=== PATIENT | male | born 1940 ===

== ENCOUNTER 2018-01-04 23:58 | Inpatient (IN) | payer MEDICAID, MEDICARE ==
[2018-01-05 00:15] VITALS: BMI 25.1
[2018-01-05] MEDS: Sodium Chloride 0.9% 1,000 ML IV SCH ×3 (00:25→23:58)
[2018-01-05 00:30] LABS: BASO % 0.3 % (0.0-2.0); EOS # 0.1 K/uL (0.0-0.7); EOS % 0.8 % (0.0-4.0); HEMOGLOBIN 13.1 g/dL (12.0-18.0); LYMPH # 0.9 K/uL (1.0-4.3); MEAN CORPUSCULAR HEMOGLOBIN 31.1 pg (27.0-31.0); MEAN CORPUSCULAR HGB CONC 33.8 g/dL (33.0-37.0); MONO # 1.4 K/uL (0.0-0.8); NEUT # 8.5 K/uL (1.8-7.0); NEUT % 77.9 % (50.0-75.0); PLATELET COUNT 245 K/uL (130-400); RBC 4.22 Mil/uL (4.40-5.90); RED CELL DISTRIBUTION WIDTH 13.6 % (11.5-14.5); WHITE BLOOD COUNT 10.9 K/uL (4.8-10.8)
[2018-01-05] MEDS ORDERED: Sodium Chloride 0.9% 1,000 ML ONE (00:33)
[2018-01-05 00:41] LABS: INR 1.3; PROTHROMBIN TIME 14.7 SECONDS (9.7-12.2)
[2018-01-05 00:47] LABS: ALBUMIN 3.5 g/dL (3.5-5.0); ALT/SGPT 37 U/L (21-72); AST/SGOT 51 U/L (17-59); BLOOD UREA NITROGEN 25 mg/dL (9-20); CALCIUM 9.4 mg/dl (8.6-10.4); GFR NON-AFRICAN AMERICAN > 60; HDL CHOLESTEROL 24 mg/dL (30-70)
[2018-01-05 00:58] LABS: LDL CHOLESTEROL 75 mg/dL (0-129)
[2018-01-05] MEDS ORDERED: cefTRIAXone IV 1 gm in Dextros 50 ML IV ONE (01:06)
[2018-01-05] MEDS ORDERED: Azithromycin 500 MG in Sodium Chloride 0.9% 250 ML IV STA (01:06)
[2018-01-05] MEDS ORDERED: cefTRIAXone 1 gm 1 GM/100 ML BAG IVPB ONE (01:17)
[2018-01-05] MEDS ORDERED: Iodixanol 320 MG/ML 100 ML BOTTLE IV ONE (01:34)
[2018-01-05 01:58] LABS: LYMPHOCYTE 10 % (20-40); MONOCYTE 13 % (0-10); NEUTROPHIL 77 % (50-75); PLATELET ESTIMATE NORMAL (NORMAL); TOTAL CELLS COUNTED 100
[2018-01-05] MEDS ORDERED: Azithromycin 500mg/250ML NS 500 MG/250 ML BAG IVPB ONE (01:58)
--- NOTE | 2018-01-05 02:29 | C.PDOC ---
History Of Present Illness 77 year old male brought in by for AMS for the past 2 days. As per , patient has been confused with unstable gait and has been falling at home. Today patient has had trouble following directions and answers inappropriately. Patient at baseline has normal mental function and steady gait. Time Seen by Provider: 01/05/18 00:14 Chief Complaint (Nursing): Altered Mental Status History Per: Family () History/Exam Limitations: None Onset/Duration Of Symptoms: Days (2) Current Symptoms Are (Timing): Still Present Usual Baseline: Alert Oriented, Ambulatory Exacerbating Factor(s): Unknown Speech Is: Normal Decreased Ability To: Walk Recent travel outside of the [place]: No Past Medical History Reviewed: Historical Data, Nursing Documentation, Vital Signs Vital Signs: Last Vital Signs Temp 100.1 F H 01/05/18 00:09 Pulse 73 01/05/18 01:56 Resp 16 01/05/18 01:56 BP 141/76 01/05/18 01:56 Pulse Ox 100 01/05/18 01:56 - Medical History PMH: Emphysema, Hypercholesterolemia Denies: Chronic Kidney Disease Family History: States: Unknown Family Hx - Social History Hx Alcohol Use: No Hx Substance Use: No Review Of Systems Review Of Systems: ROS cannot be obtained secondary to pt's inabilty to answer questions. Physical Exam - Physical Exam Appears: Non-toxic Skin: Normal Color, Warm, Dry Head: Atraumatic, Normacephalic Eye(s): bilateral: Normal Inspection, PERRL, EOMI Oral Mucosa: Moist Neck: Normal, Supple Chest: Symmetrical, No Tenderness Cardiovascular: Rhythm Regular Respiratory: No Rales, No Rhonchi, No Wheezing, Other (Distant breath sounds with crackles) Gastrointestinal/Abdominal: Soft, No Tenderness Male Genital: Other (Benign right inguinal hernia) Neurological/Psych: Other (Awake, alert, intermittently confused) ED Course And Treatment - Laboratory Results Result Diagrams: 01/05/18 00:25 01/05/18 00:25 Lab Interpretation: Abnormal ECG: Interpreted By Me ECG Rhythm: Sinus Rhythm ECG Interpretation: Normal Rate From EC O2 Sat by Pulse Oximetry: 100 (room air) Pulse Ox Interpretation: Normal - Radiology CXR: Interpreted by Me CXR Interpretation: Yes: Other (interstial lung dz, no obvious PNA noted. ? free air under R HD- referred for CT) Reevaluation Time: 03:38 Reassessment Condition: Improved - Physician Consult Information Outcome Of Conversation: 0530: d/w Dr. Marsh, PMD, ok to admit. NIHSS Stroke Scale 2 - Date/Time Evaluation Performed Date Performed: 01/05/18 Time Performed: 00:15 When Was NIHSS Performed: Baseline - How Severe is the Stroke Level of Consciousness: 0=Alert LOC to Questions: 1=One correct LOC to commands: 0=Obeys both correctly Best Gaze: 0=Normal Visual: 0=No visual loss Facial: 0=Normal Motor Arm - Left: 0=No drift Motor Arm - Right: 0=No drift Motor Leg - Left: 0=No drift Motor Leg - Right: 0=No drift Limb Ataxia: 0=Absent Sensory: 0=Normal Best Language: 0=No aphasia Dysarthia: 1=Mild to moderate slurring Extinction & Inattention (Neglect): 0=Normal, no object Score: 2 rTPA Inclusion/Exclusion - Refusal of Treatment Patient Refused Treatment: No - Inclusion Criteria for Altepase Patient is 18 years or Older: Yes Clinical DX Ischemic Stroke Cause Neurological Deficit: No Time of Onset Established Less Than 270 Mins Before TX Begin: No Risk/Benefit Discussed With Patient/Family Member Present: No - Exclusion Criteria for Altepase Uncontrolled Hypertension at Time of TX (SBP>185 or DBP>110): No - Warning to TPA With Conditions Condition: Stroke Serevity Too Mild, Age Greater Than 75 years Medical Decision Making Medical Decision Making: change of MS normal Head CT Waxing and waning mental status (confusion) without neurological deficit ASA given May be fatigue due to multiple underlying acute on chronic medical issues. consider MRI in AM interstitial pneumonitis steroids, nebs, abx (conflict in CT Chest saying both NO QUENTIN and + mediastinal and hilar LN's) Sigmoid Diverticulitis ABX Surg Consult PRN Bladder/Sigmoid Adhesion prob related to surgical adhesion no obvious fistula Urology Consult PRN Disposition Doctor Will See Patient In The: Hospital Counseled Patient/Family Regarding: Studies Performed, Diagnosis - Disposition Disposition: HOSPITALIZED Disposition Time: 03:38 Condition: GOOD Forms: [facility] (Greek) - Clinical Impression Clinical Impression: Change in mental status, Diverticulitis, Bladder adhesions, Interstitial lung disease - Scribe Statement The provider has reviewed the documentation as recorded by the Scribdonna Whitlock All medical record entries made by the Baudilio were at my direction and personally dictated by me. I have reviewed the chart and agree that the record accurately reflects my personal performance of the history, physical exam, medical decision making, and the department course for this patient. I have also personally directed, reviewed, and agree with the discharge instructions and disposition.
[2018-01-05 03:13] LABS: GRANULAR CAST 4 /lpf (0-1); SQUAMOUS EPITHIAL 1 /hpf (0-5); URINE BILIRUBIN NEGATIVE (NEGATIVE); URINE BLOOD 2+ (NEGATIVE); URINE CLARITY Clear (Clear); URINE COLOR Yellow (YELLOW); URINE GLUCOSE (UA) NORMAL (Normal); URINE LEUKOCYTE ESTERASE NEG Leu/uL (Negative); URINE PROTEIN 1+ mg/dL (NEGATIVE)
[2018-01-05] MEDS ORDERED: Aspirin 325 mg EC Tablets PO STA (03:29)
[2018-01-05] MEDS ORDERED: Albuterol-Ipratrop 3 mg / 0.5 (3 ml) UD INH STA ×2 (03:32→03:42)
[2018-01-05] MEDS ORDERED: Aspirin 325 mg EC Tablets PO ONE (04:11)
[2018-01-05] MEDS ORDERED: Albuterol-Ipratrop 3 mg / 0.5 (3 ml) UD ONE ×2 (04:13)
[2018-01-05] MEDS ORDERED: Promethazine DM 6.25 mg-15 mg/5 ml Syrup ONE (05:26)
[2018-01-05] MEDS: Promethazine DM 6.25 mg-15 mg/5 ml Syrup PO PRN (05:26)
[2018-01-05] MEDS ORDERED: metroNIDAZOLE IV 500 mg/100 ml 500 MG/100 ML BAG ONE (06:24)
[2018-01-05] MEDS: metroNIDAZOLE IV 500 mg/100 ml 500 MG/100 ML BAG IVPB SCH ×3 (06:26→22:05)
--- NOTE | 2018-01-05 07:43 | CT ---
Date of service: 01/05/2018 PROCEDURE: CT HEAD WITHOUT CONTRAST. HISTORY: Mental status changes. Falls. Gait abnormality. COMPARISON: 10/03/2017 TECHNIQUE: Axial computed tomography images were obtained through the head/brain without intravenous contrast. Radiation dose: Total exam DLP = 928.05 mGy-cm. This CT exam was performed using one or more of the following dose reduction techniques: Automated exposure control, adjustment of the mA and/or kV according to patient size, and/or use of iterative reconstruction technique. FINDINGS: HEMORRHAGE: No intracranial hemorrhage. BRAIN: No mass effect or edema. Scattered focal lucencies in the subcortical and periventricular white matter suggestive for chronic microvascular ischemic change. Bilateral basal ganglia lacunar infarcts. Limited evaluation of the posterior fossa including the cerebellum as well as the brainstem given prominent streak attenuation artifact. For example, a 5 mm hypodensity seen within the medulla on series 4, image 10 may be the sequelae of streak artifact; however, a chronic lacunar infarct at this level cannot be excluded. Correlation with MRI would be helpful for further evaluation if clinically indicated. VENTRICLES: Unremarkable. No hydrocephalus. CALVARIUM: Unremarkable. PARANASAL SINUSES: Unremarkable as visualized. No significant inflammatory changes. MASTOID AIR CELLS: Partial opacification of the right mastoid air cells. OTHER FINDINGS: Intracranial arterial calcifications. Limited evaluation of the posterior fossa including the cerebellum as well as the brainstem given prominent streak attenuation artifact. IMPRESSION: 1. Limited evaluation of the posterior fossa including the cerebellum as well as the brainstem given prominent streak attenuation artifact. For example, a 5 mm hypodensity seen within the medulla on series 4, image 10 may be the sequelae of streak artifact; however, a chronic lacunar infarct at this level cannot be excluded. Correlation with MRI would be helpful for further evaluation if clinically indicated. 2. Chronic microvascular ischemic changes. 3. Partial opacification of the right mastoid air cells. If symptoms persists, consider correlation with MRI. A preliminary report was generated at 1:40 a.m. on 01/05/[address] Tamela Martins from [employer].
[2018-01-05] MEDS: Albuterol-Ipratrop 3 mg / 0.5 (3 ml) UD INH SCH ×2 (08:00→20:07)
--- NOTE | 2018-01-05 09:02 | RAD ---
Date of service: 01/05/2018 HISTORY: Code Stroke COMPARISON: 05/01/2015. FINDINGS: LUNGS: There is redemonstration of severe chronic interstitial thickening in both lungs. There is linear atelectasis/scarring in the right lung base. PLEURA: No pleural effusions or pneumothorax. CARDIOVASCULAR: The heart is normal in size. No aortic atherosclerotic calcification present. OSSEOUS STRUCTURES: Within normal limits for the patient's age. VISUALIZED UPPER ABDOMEN: Normal. OTHER FINDINGS: None. IMPRESSION: No active pulmonary disease. Chronic interstitial pulmonary fibrosis.
--- NOTE | 2018-01-05 09:22 | CT ---
Date of service: 01/05/2018 PROCEDURE: CT Chest, Abdomen and Pelvis with intravenous contrast HISTORY: pulm dz, ? free air under diaphragm, change of MS COMPARISON: Comparison is made to the previous study dated 06/02/2015 TECHNIQUE: IV dose administered: 100 mL of Visipaque 320 intravenously. Axial and reformatted coronal and sagittal CT images of the chest abdomen and pelvis were obtained after IV contrast administration. Radiation dose: Total exam DLP = 557.28 mGy-cm. This CT exam was performed using one or more of the following dose reduction techniques: Automated exposure control, adjustment of the mA and/or kV according to patient size, and/or use of iterative reconstruction technique. FINDINGS: CT CHEST WITH CONTRAST: LUNGS: Interval worsening of reticular and reticulonodular opacities in both lobes associated with [id number] bronchiectasis since the previous exam. No evidence of honeycombing changes. Findings are nonspecific and likely represent inflammatory process and pneumonitis. The differential consideration includes also sequela of infectious process. MEDIASTINUM: The thoracic aorta is slightly dilated.. No aortic dissection. The heart is mildly enlarged. No evidence of pericardial effusion. The thyroid gland is normal in size. LYMPH NODES: Mildly to moderately enlarged mediastinal lymph nodes more prominent at the right paratracheal region are noted. PLEURA: No evidence of pleural effusion or pneumothorax. Small pleural base nodules are noted diffusely. BONES: Unremarkable. OTHER FINDINGS: None. CT ABDOMEN AND PELVIS: LIVER: Unremarkable. No gross lesion or ductal dilatation. GALLBLADDER AND BILE DUCTS: Unremarkable. PANCREAS: Unremarkable. No gross lesion or ductal dilatation. SPLEEN: Unremarkable. ADRENALS: Unremarkable. No mass. KIDNEYS AND URETERS: There are small foci of calcification in both kidneys likely represent nonobstructing renal calculi. There is nonobstructing calculus at the right UV junction/proximal right ureter measures 4 millimeter best seen on image 101 series 6. No evidence of significant hydronephrosis or hydroureter. VASCULATURE: No aortic atherosclerotic calcification or mural plaque present. Unremarkable. No aortic aneurysm. BOWEL: Again noted is short segment of moderate wall thickening at the sigmoid colon. The differential consideration includes neoplasm versus sequela of recurrent diverticulitis. No evidence of obstruction in the large bowel. No obstruction. No gross mural thickening. Suboptimal assessment of the GI without oral contrast administration. The stomach is not distended. Small hiatus hernia is noted. APPENDIX: No evidence of appendicitis. PERITONEUM: Unremarkable. No free fluid. No free air. LYMPH NODES: Unremarkable. No enlarged lymph nodes. BLADDER: Mild urinary bladder wall thickening is noted. REPRODUCTIVE: The prostate is mildly enlarged. BONES: No acute fracture. OTHER FINDINGS: Small right fat containing inguinal hernia noted. IMPRESSION: Redemonstration of short segment of sigmoid colon wall thickening. The differential consideration includes neoplasm versus a sequela of recurrent diverticulitis. No evidence of bowel obstruction. 4 millimeter calculus noted at the proximal right ureter without evidence of obstruction or hydronephrosis. Bilateral nonobstructing renal calculi. Interval mild worsening of reticular nodular opacities in the lungs associated with [id number] bronchiectasis since the previous study likely represent a sequela of inflammatory lung disease and/or pneumonitis. Mild cardiomegaly. Preliminary report contains concordant findings was submitted by [facility] Rad[facility].
[2018-01-05] MEDS: Piperacill/Tazo 3.375gm in Dex 3.375 GM/50 ML BAG IVPB SCH ×2 (13:35→21:30)
[2018-01-05] MEDS: MethylPREDNISolone 40 mg Vial IVP SCH ×2 (13:39→22:04)
--- NOTE | 2018-01-05 15:09 | CP.PCM.CON ---
History of Present Illness - History of Present Illness History of Present Illness: 77 YO HISP MALE WITH A HX COPD, +AFIB X 2 MONTHS, ADM 01/05/18 WITH INCREASED MOD SOB X 2 WKS WITH MIN EXERTION +COUGH NO SPUTUM. +FEVER YESTERDAY WITH N/V NO DIARRHEA., NO ABDOM PAIN. ALSO S/P MULT FALLS X3 IN PAST WK AT HOME., ?NEAR SYNCOPE., MEMORY LAPSES., UNSTEADY GAIT. HAS HOME NEB ., NO HOME O2. NO PREVIOUS HOSP ADM. QUIT SMOKING MANY YRS AGO. Review of Systems - Review of Systems All systems: reviewed and no additional remarkable complaints except - Constitutional Constitutional: Fever, Frequent Falls, Weakness - EENT Eyes: absent: Change in Vision Ears: absent: Tinnitus Nose/Mouth/Throat: absent: Nasal Congestion - Cardiovascular Cardiovascular: absent: Chest Pain - Respiratory Respiratory: Cough, Dyspnea on Exertion, Wheezing, Excessive Mucous Production. absent: Hemoptysis - Gastrointestinal Gastrointestinal: Nausea, Vomiting - Genitourinary Genitourinary: absent: Difficulty Urinating - Musculoskeletal Musculoskeletal: Muscle Weakness - Integumentary Integumentary: absent: Rash - Neurological Neurological: Abnormal Gait, Confusion, Memory Loss - Psychiatric Psychiatric: absent: Anxiety - Endocrine Endocrine: absent: Change in Body Appearance - Hematologic/Lymphatic Hematologic: absent: Easy Bleeding Past Patient History - Past Medical History & Family History Past Medical History?: Yes Past Family History: Reviewed and not pertinent - Past Social History Smoking Status: Former Smoker Alcohol: Occasional - CARDIAC Hx Atrial Fibrillation: Yes Hx Hypercholesterolemia: Yes - PULMONARY Hx Chronic Obstructive Pulmonary Disease (COPD): Yes Hx Emphysema: Yes - NEUROLOGICAL Hx Neurological Disorder: No - HEENT Hx HEENT Problems: Yes Hx Cataracts: Yes - RENAL Hx Chronic Kidney Disease: No - ENDOCRINE/METABOLIC Hx Endocrine Disorders: No - HEMATOLOGICAL/ONCOLOGICAL Hx Blood Disorders: No - INTEGUMENTARY Hx Dermatological Problems: No - MUSCULOSKELETAL/RHEUMATOLOGICAL Hx Falls: Yes - GASTROINTESTINAL Hx Gastrointestinal Disorders: No - GENITOURINARY/GYNECOLOGICAL Hx Genitourinary Disorders: No - PSYCHIATRIC Hx Psychophysiologic Disorder: No Hx Substance Use: No - SURGICAL HISTORY Hx Surgeries: No - ANESTHESIA Hx Anesthesia: No Meds Allergies/Adverse Reactions: Allergies Allergy/AdvReac Type Severity Reaction Status Date / Time No Known Allergies Allergy Verified 07/17/15 07:25 - Medications Medications: Current Medications Albuterol/Ipratropium (Duoneb 3 Mg/0.5 Mg (3 Ml) Ud) 3 ml INH RQ6 [facility] Last Admin: 01/05/18 08:00 Dose: 3 ml Heparin Sodium (Porcine) (Heparin) 5,000 units SC Q12 [facility] Last Admin: 01/05/18 12:14 Dose: 5,000 units Sodium Chloride (Sodium Chloride 0.9%) 1,000 mls @ 100 mls/hr IV .Q10H [facility] Last Admin: 01/05/18 11:57 Dose: 100 mls/hr Metronidazole (Flagyl) 500 mg in 100 mls @ 100 mls/hr IVPB Q8H [facility]; Protocol Last Admin: 01/05/18 13:35 Dose: 100 mls/hr Piperacillin Sod/Tazobactam Sod (Zosyn 3.375 Gm Iv Premix) 3.375 gm in 50 mls @ 100 mls/hr IVPB Q8 [facility]; Protocol Last Admin: 01/05/18 13:35 Dose: 100 mls/hr Methylprednisolone (Solu-Medrol) 40 mg IVP Q8 [facility] Last Admin: 01/05/18 13:39 Dose: 40 mg Montelukast Sodium (Singulair) 10 mg PO HS [facility] Pantoprazole Sodium (Protonix Inj) 40 mg IVP DAILY [facility] Last Admin: 01/05/18 13:35 Dose: 40 mg Promethazine HCl/Dextromethorphan (Phenergan Dm Syrup) 5 ml PO Q8 PRN PRN Reason: Wheezing Last Admin: 01/05/18 05:26 Dose: 5 ml Physical Exam - Constitutional Appears: Non-toxic, No Acute Distress - Head Exam Head Exam: ATRAUMATIC, NORMOCEPHALIC - Eye Exam Eye Exam: EOMI, Normal appearance - ENT Exam ENT Exam: Mucous Membranes Moist - Neck Exam Neck exam: Negative for: Tenderness - Respiratory Exam Respiratory Exam: Rhonchi Additional comments: COARSE BILAT RHONCHI. - Cardiovascular Exam Cardiovascular Exam: RRR, +S1, +S2 - GI/Abdominal Exam GI & Abdominal Exam: Soft. absent: Tenderness - Rectal Exam Rectal Exam: Deferred - Extremities Exam Extremities exam: Negative for: calf tenderness, pedal edema - Back Exam Back exam: absent: CVA tenderness (L), CVA tenderness (R) - Neurological Exam Neurological exam: Alert, CN II-XII Intact - Psychiatric Exam Psychiatric exam: Normal Mood Results - Vital Signs Recent Vital Signs: Last Vital Signs Temp 98.1 F 01/05/18 11:20 Pulse 81 01/05/18 11:20 Resp 20 01/05/18 11:20 BP 133/78 01/05/18 11:20 Pulse Ox 100 01/05/18 11:20 - Labs Result Diagrams: 01/05/18 00:25 01/05/18 00:25 Labs: Laboratory Results - last 24 hr 01/05/18 01/05/18 01/05/18 00:12 00:25 00:25 WBC 10.9 H D RBC 4.22 L Hgb 13.1 Hct 38.9 MCV 92.0 D MCH 31.1 H MCHC 33.8 RDW 13.6 Plt Count 245 MPV 9.0 Neut % (Auto) 77.9 H Lymph % (Auto) 8.0 L [place] % (Auto) 13.0 H Eos % (Auto) 0.8 Baso % (Auto) 0.3 Neut # (Auto) 8.5 H Lymph # (Auto) 0.9 L [place] # (Auto) 1.4 H Eos # (Auto) 0.1 Baso # (Auto) 0.0 Neutrophils % (Manual) 77 H Lymphocytes % (Manual) 10 L Monocytes % (Manual) 13 H Platelet Estimate Normal PT 14.7 H INR 1.3 APTT 29 Sodium Potassium Chloride Carbon Dioxide Anion Gap BUN Creatinine Est GFR ( Amer) Est GFR (Non-Af Amer) POC Glucose (mg/dL) 104 Random Glucose Hemoglobin A1c Calcium Total Bilirubin AST ALT Alkaline Phosphatase Troponin I Total Protein Albumin Globulin Albumin/Globulin Ratio Triglycerides Cholesterol LDL Cholesterol Direct HDL Cholesterol Urine Color Urine Clarity Urine pH Ur Specific [place] Urine Protein Urine Glucose (UA) Urine Ketones Urine Blood Urine Nitrate Urine Bilirubin Urine Urobilinogen Ur Leukocyte Esterase Urine WBC (Auto) Urine RBC (Auto) Ur Squamous Epith Cells Hyaline Casts Granular Casts (Auto) 01/05/18 01/05/18 01/05/18 00:25 00:42 02:56 WBC RBC Hgb Hct MCV MCH MCHC RDW Plt Count MPV Neut % (Auto) Lymph % (Auto) [place] % (Auto) Eos % (Auto) Baso % (Auto) Neut # (Auto) Lymph # (Auto) [place] # (Auto) Eos # (Auto) Baso # (Auto) Neutrophils % (Manual) Lymphocytes % (Manual) Monocytes % (Manual) Platelet Estimate PT INR APTT Sodium 138 Potassium 3.8 Chloride 104 Carbon Dioxide 25 Anion Gap 13 BUN 25 H Creatinine 1.0 Est GFR ( Amer) > 60 Est GFR (Non-Af Amer) > 60 POC Glucose (mg/dL) Random Glucose 114 H Hemoglobin A1c 6.2 Calcium 9.4 Total Bilirubin 0.6 AST 51 ALT 37 Alkaline Phosphatase 122 Troponin I < 0.0120 Total Protein 7.0 Albumin 3.5 Globulin 3.5 Albumin/Globulin Ratio 1.0 Triglycerides 120 Cholesterol 118 LDL Cholesterol Direct 75 HDL Cholesterol 24 L Urine Color Yellow Urine Clarity Clear Urine pH 5.0 Ur Specific [place] 1.039 H Urine Protein 1+ H Urine Glucose (UA) Normal Urine Ketones Negative Urine Blood 2+ H Urine Nitrate Negative Urine Bilirubin Negative Urine Urobilinogen 4.0 Ur Leukocyte Esterase Neg Urine WBC (Auto) 4 Urine RBC (Auto) 29 H Ur Squamous Epith Cells 1 Hyaline Casts 3-5 H Granular Casts (Auto) 4 Assessment & Plan (1) COPD exacerbation Status: Acute (2) Pneumonia Status: Acute (3) Respiratory failure Status: Acute (4) Atrial fibrillation Status: Acute (5) Change in mental status Status: Acute (6) Diverticulitis Status: Acute - Assessment and Plan (Free Text) Assessment: 77 YO MALE WITH A HX MULT MED PROBS ADM WITH COPD EXAC AND FEVER, R/O SEPSIS. +SIG DIVERTICULITIS R/O MASS NOTED ON CT ABD. ALSO REVIEWED CT CHEST +BRONCHIECTATIC CHANGES WITH INFILT BILAT. CONT IV EMPIRIC AB. FOR ID EVAL. MONITOR O2 SAT 97% ON 2L NOW. CONT STEROIDS, CONT NEB BD. S/P NEAR SYNCOPE ? MULT FALLS. ?HX PAROX AFIB., CONT TELEM MONITORING. F/U ECHO. GI/DVT PROPHYLAXIS. PROG GUARDED. DISCUSSED WITH STAFF AT LENGTH AND FAMILY AT BEDSIDE.
--- NOTE | 2018-01-05 18:20 | CP.PCM.CON ---
History of Present Illness - History of Present Illness History of Present Illness: 77 YO male admitted with increasing cough and SOB and generalized weakness Has Hx of severe COPD with bronchiectasis also found to have sigmoid diverticultitis with possible mass ID consulted for antibiitic management Review of Systems - Review of Systems All systems: reviewed and no additional remarkable complaints except - Constitutional Constitutional: As Per HPI, Chills, Fever. absent: Weight Loss - EENT Eyes: absent: As Per HPI, Blind Spots, Blurred Vision, Change in Vision, Decreased Night Vision, Diplopia, Discharge, Dry Eye, Exophthalmos, Floaters, Irritation, Itchy Eyes, Loss of Peripheral Vision, Pain, Photophobia, Requires Corrective Lenses, Sees Flashes, Spots in Vision, Tunnel Vision, Other Visual Disturbances, Loss of Vision, Other Ears: absent: As Per HPI, Decreased Hearing, Ear Discharge, Ear Pain, Tinnitus, Abnormal Hearing, Disequilibrium, Dizziness, Other Nose/Mouth/Throat: absent: As Per HPI, Epistaxis, Nasal Congestion, Nasal Discharge, Nasal Obstruction, Nasal Trauma, Nose Pain, Post Nasal Drip, Sinus Pain, Sinus Pressure, Bleeding Gums, Change in Voice, Dental Pain, Dry Mouth, Dysphagia, Halitosis, Hoarsness, Lip Swelling, Mouth Lesions, Mouth Pain, Odynophagia, Sore Throat, Throat Swelling, Tongue Swelling, Facial Pain, Neck Pain, Neck Mass, Other - Cardiovascular Cardiovascular: As Per HPI - Respiratory Respiratory: As Per HPI, Cough, Dyspnea. absent: Hemoptysis - Gastrointestinal Gastrointestinal: absent: As Per HPI, Abdominal Pain, Belching, Bloating, Change in Bowel Habits, Change in Stool Character, Coffee Ground Emesis, Constipation, Cramping, Diarrhea, Dyspepsia, Dysphagia, Early Satiety, Excessive Flatus, Fecal Incontinence, Heartburn, Hematemesis, Hematochezia, Loose Stools, Melena, Nausea, Odynophagia, Temesmus, Vomiting, Other - Genitourinary Genitourinary: absent: As Per HPI, Change in Urinary Stream, Difficulty Urinating, Dysuria, Flank Pain, Hematuria, Pyuria, Nocturia, Urinary Incontinence, Urinary Frequency, Urinary Hesitance, Urinary Urgency, Voiding Freq/Small Amts, Freq UTI, Hx Renal/Bladder Calculi, Hx /Renal Surgery, Bladder Distension, Other - Musculoskeletal Musculoskeletal: absent: As Per HPI, Abnormal Gait, Arthralgias, Atrophy, Back Pain, Deformity, Joint Swelling, Limited Range of Motion, Loss of Height, Muscle Cramps, Muscle Weakness, Myalgias, Neck Pain, Numbness, Radiating Pain into Limb, Stiffness, Tingling, Other - Integumentary Integumentary: absent: As Per HPI, Acne, Alopecia, Bleeding Lesions, Change in Hair, Change in Nails, Change in Pigmentation, Changing Lesions, Dry Skin, Erythema, Furuncle, Hirsutism, Lesions, New Lesions, Non-Healing Lesions, Photosensitivity, Pruritus, Rash, Skin Pain, Skin Ulcer, Sores, Striae, Swelling, Unusual Bruising, Wounds, Jaundice, Other - Neurological Neurological: absent: As Per HPI, Abnormal Gait, Abnormal Hearing, Abnormal Movements, Abnormal Speech, Behavioral Changes, Burning Sensations, Confusion, Convulsions, Disequilibrium, Dizziness, Numbness, Focal Weakness, Frequent Falls, Headaches, Lack of Coordination, Loss of Vision, Memory Loss, Paresthesias, Radicular Pain, Restless Legs, Sensory Deficit, Syncope, Tingling, Tremor, Vertigo, Weakness, Other Visual Disturbances, Other - Psychiatric Psychiatric: absent: As Per HPI, Abnormal Sleep Pattern, Anhedonia, Anxiety, Auditory Hallucinations, Behavioral Changes, Change in Appetite, Change in Libido, Confusion, Depression, Difficulty Concentrating, Hallucinations, Homicidal Ideation, Hopelessness, Irritability, Memory Loss, Mood Swings, Panic Attacks, Paranoia, Suicidal Ideation, Visual Hallucinations, Tactile Hallucinations, Other - Endocrine Endocrine: absent: As Per HPI, Change in Body Appearance, Change in Libido, Cold Intolorance, Deepening of Voice, Excessive Sweating, Fatigue, Flushing, Heat Intolorance, Increase in Ring/Shoe/Hat Size, Palpitations, Polydipsia, Polyphagia, Polyuria, Other - Hematologic/Lymphatic Hematologic: absent: As Per HPI, Easy Bleeding, Easy Bruising, Lymphadenopathy, Other Past Patient History - Past Medical History & Family History Past Medical History?: Yes Past Family History: Reviewed and not pertinent - Past Social History Smoking Status: Former Smoker Alcohol: Occasional - CARDIAC Hx Atrial Fibrillation: Yes Hx Hypercholesterolemia: Yes - PULMONARY Hx Chronic Obstructive Pulmonary Disease (COPD): Yes Hx Emphysema: Yes - NEUROLOGICAL Hx Neurological Disorder: No - HEENT Hx HEENT Problems: Yes Hx Cataracts: Yes - RENAL Hx Chronic Kidney Disease: No - ENDOCRINE/METABOLIC Hx Endocrine Disorders: No - HEMATOLOGICAL/ONCOLOGICAL Hx Blood Disorders: No - INTEGUMENTARY Hx Dermatological Problems: No - MUSCULOSKELETAL/RHEUMATOLOGICAL Hx Falls: Yes - GASTROINTESTINAL Hx Gastrointestinal Disorders: No - GENITOURINARY/GYNECOLOGICAL Hx Genitourinary Disorders: No - PSYCHIATRIC Hx Psychophysiologic Disorder: No Hx Substance Use: No - SURGICAL HISTORY Hx Surgeries: No - ANESTHESIA Hx Anesthesia: No Meds Allergies/Adverse Reactions: Allergies Allergy/AdvReac Type Severity Reaction Status Date / Time No Known Allergies Allergy Verified 07/17/15 07:25 - Medications Medications: Current Medications Albuterol/Ipratropium (Duoneb 3 Mg/0.5 Mg (3 Ml) Ud) 3 ml INH RQ6 ALMA Last Admin: 01/05/18 08:00 Dose: 3 ml Heparin Sodium (Porcine) (Heparin) 5,000 units SC Q12 ALMA Last Admin: 01/05/18 12:14 Dose: 5,000 units Sodium Chloride (Sodium Chloride 0.9%) 1,000 mls @ 100 mls/hr IV .Q10H ALMA Last Admin: 01/05/18 11:57 Dose: 100 mls/hr Metronidazole (Flagyl) 500 mg in 100 mls @ 100 mls/hr IVPB Q8H ALMA; Protocol Last Admin: 01/05/18 13:35 Dose: 100 mls/hr Piperacillin Sod/Tazobactam Sod (Zosyn 3.375 Gm Iv Premix) 3.375 gm in 50 mls @ 100 mls/hr IVPB Q8 ALMA; Protocol Last Admin: 01/05/18 13:35 Dose: 100 mls/hr Methylprednisolone (Solu-Medrol) 40 mg IVP Q8 ALMA Last Admin: 01/05/18 13:39 Dose: 40 mg Montelukast Sodium (Singulair) 10 mg PO HS ALMA Pantoprazole Sodium (Protonix Inj) 40 mg IVP DAILY ALMA Last Admin: 01/05/18 13:35 Dose: 40 mg Promethazine HCl/Dextromethorphan (Phenergan Dm Syrup) 5 ml PO Q8 PRN PRN Reason: Wheezing Last Admin: 01/05/18 05:26 Dose: 5 ml Physical Exam - Constitutional Appears: Non-toxic, No Acute Distress - Head Exam Head Exam: ATRAUMATIC, NORMAL INSPECTION, NORMOCEPHALIC - Eye Exam Eye Exam: PERRL. absent: Scleral icterus - ENT Exam ENT Exam: Mucous Membranes Dry, Normal External Ear Exam - Neck Exam Neck exam: Negative for: Lymphadenopathy - Respiratory Exam Respiratory Exam: Decreased Breath Sounds, Prolonged Expiratory Phase, Rhonchi - Cardiovascular Exam Cardiovascular Exam: REGULAR RHYTHM, +S1, +S2 - GI/Abdominal Exam GI & Abdominal Exam: Diminished Bowel Sounds, Soft. absent: Tenderness - Rectal Exam Rectal Exam: Deferred - Exam Exam: NORMAL INSPECTION - Extremities Exam Extremities exam: Negative for: pedal edema - Back Exam Back exam: absent: CVA tenderness (L), CVA tenderness (R), paraspinal tenderness - Neurological Exam Neurological exam: Alert, CN II-XII Intact, Oriented x3, Reflexes Normal - Psychiatric Exam Psychiatric exam: Normal Mood - Skin Skin Exam: Dry Results - Vital Signs Recent Vital Signs: Last Vital Signs Temp 98.1 F 01/05/18 11:20 Pulse 62 01/05/18 15:56 Resp 20 01/05/18 11:20 BP 133/78 01/05/18 11:20 Pulse Ox 100 01/05/18 11:20 - Labs Result Diagrams: 01/05/18 00:25 01/05/18 00:25 Labs: Laboratory Results - last 24 hr 01/05/18 01/05/18 01/05/18 00:12 00:25 00:25 WBC 10.9 H D RBC 4.22 L Hgb 13.1 Hct 38.9 MCV 92.0 D MCH 31.1 H MCHC 33.8 RDW 13.6 Plt Count 245 MPV 9.0 Neut % (Auto) 77.9 H Lymph % (Auto) 8.0 L [place] % (Auto) 13.0 H Eos % (Auto) 0.8 Baso % (Auto) 0.3 Neut # (Auto) 8.5 H Lymph # (Auto) 0.9 L [place] # (Auto) 1.4 H Eos # (Auto) 0.1 Baso # (Auto) 0.0 Neutrophils % (Manual) 77 H Lymphocytes % (Manual) 10 L Monocytes % (Manual) 13 H Platelet Estimate Normal PT 14.7 H INR 1.3 APTT 29 Sodium Potassium Chloride Carbon Dioxide Anion Gap BUN Creatinine Est GFR ( Amer) Est GFR (Non-Af Amer) POC Glucose (mg/dL) 104 Random Glucose Hemoglobin A1c Calcium Total Bilirubin AST ALT Alkaline Phosphatase Troponin I Total Protein Albumin Globulin Albumin/Globulin Ratio Triglycerides Cholesterol LDL Cholesterol Direct HDL Cholesterol Urine Color Urine Clarity Urine pH Ur Specific [place] Urine Protein Urine Glucose (UA) Urine Ketones Urine Blood Urine Nitrate Urine Bilirubin Urine Urobilinogen Ur Leukocyte Esterase Urine WBC (Auto) Urine RBC (Auto) Ur Squamous Epith Cells Hyaline Casts Granular Casts (Auto) 01/05/18 01/05/18 01/05/18 00:25 00:42 02:56 WBC RBC Hgb Hct MCV MCH MCHC RDW Plt Count MPV Neut % (Auto) Lymph % (Auto) [place] % (Auto) Eos % (Auto) Baso % (Auto) Neut # (Auto) Lymph # (Auto) [place] # (Auto) Eos # (Auto) Baso # (Auto) Neutrophils % (Manual) Lymphocytes % (Manual) Monocytes % (Manual) Platelet Estimate PT INR APTT Sodium 138 Potassium 3.8 Chloride 104 Carbon Dioxide 25 Anion Gap 13 BUN 25 H Creatinine 1.0 Est GFR ( Amer) > 60 Est GFR (Non-Af Amer) > 60 POC Glucose (mg/dL) Random Glucose 114 H Hemoglobin A1c 6.2 Calcium 9.4 Total Bilirubin 0.6 AST 51 ALT 37 Alkaline Phosphatase 122 Troponin I < 0.0120 Total Protein 7.0 Albumin 3.5 Globulin 3.5 Albumin/Globulin Ratio 1.0 Triglycerides 120 Cholesterol 118 LDL Cholesterol Direct 75 HDL Cholesterol 24 L Urine Color Yellow Urine Clarity Clear Urine pH 5.0 Ur Specific [place] 1.039 H Urine Protein 1+ H Urine Glucose (UA) Normal Urine Ketones Negative Urine Blood 2+ H Urine Nitrate Negative Urine Bilirubin Negative Urine Urobilinogen 4.0 Ur Leukocyte Esterase Neg Urine WBC (Auto) 4 Urine RBC (Auto) 29 H Ur Squamous Epith Cells 1 Hyaline Casts 3-5 H Granular Casts (Auto) 4 01/05/18 17:24 WBC RBC Hgb Hct MCV MCH MCHC RDW Plt Count MPV Neut % (Auto) Lymph % (Auto) [place] % (Auto) Eos % (Auto) Baso % (Auto) Neut # (Auto) Lymph # (Auto) [place] # (Auto) Eos # (Auto) Baso # (Auto) Neutrophils % (Manual) Lymphocytes % (Manual) Monocytes % (Manual) Platelet Estimate PT INR APTT Sodium Potassium Chloride Carbon Dioxide Anion Gap BUN Creatinine Est GFR ( Amer) Est GFR (Non-Af Amer) POC Glucose (mg/dL) 172 H Random Glucose Hemoglobin A1c Calcium Total Bilirubin AST ALT Alkaline Phosphatase Troponin I Total Protein Albumin Globulin Albumin/Globulin Ratio Triglycerides Cholesterol LDL Cholesterol Direct HDL Cholesterol Urine Color Urine Clarity Urine pH Ur Specific [place] Urine Protein Urine Glucose (UA) Urine Ketones Urine Blood Urine Nitrate Urine Bilirubin Urine Urobilinogen Ur Leukocyte Esterase Urine WBC (Auto) Urine RBC (Auto) Ur Squamous Epith Cells Hyaline Casts Granular Casts (Auto) Assessment & Plan (1) Atrial fibrillation Status: Acute (2) COPD exacerbation Status: Acute (3) Diverticulitis Status: Acute (4) Interstitial lung disease Status: Acute (5) Pneumonia Status: Acute (6) Nephrolithiasis Status: Acute - Assessment and Plan (Free Text) Assessment: await cultures cont empiric IV antibiotics , bronchodilators, steroids , O2 On zosyn/ flagyl add zithromax pending serologies
[2018-01-05 20:39] LABS: LEGIONELLA AG URINE NEGATIVE (NEGATIVE)
[2018-01-05 20:59] LABS: MYCOPLASMA PNEUMONIAE IGM NEGATIVE (NEGATIVE)
[2018-01-06] MEDS: Azithromycin 500 MG in Sodium Chloride 0.9% 250 ML IVPB SCH (02:35)
[2018-01-06] MEDS: Piperacill/Tazo 3.375gm in Dex 3.375 GM/50 ML BAG IVPB SCH ×3 (05:14→22:31)
[2018-01-06] MEDS: MethylPREDNISolone 40 mg Vial IVP SCH ×3 (05:15→22:31)
[2018-01-06] MEDS: metroNIDAZOLE IV 500 mg/100 ml 500 MG/100 ML BAG IVPB SCH ×3 (06:25→22:33)
[2018-01-06 07:56] LABS: BASO % 0.2 % (0.0-2.0); HEMOGLOBIN 12.1 g/dL (12.0-18.0); LYMPH # 0.7 K/uL (1.0-4.3); LYMPH % 5.6 % (20.0-40.0); MEAN CELL VOLUME 93.3 fL (80.0-94.0); MEAN CORPUSCULAR HEMOGLOBIN 31.1 pg (27.0-31.0); MEAN CORPUSCULAR HGB CONC 33.3 g/dL (33.0-37.0); MEAN PLATELET VOLUME 9.1 fL (7.2-11.7); MONO # 0.7 K/uL (0.0-0.8); MONO % 5.8 % (0.0-10.0); NEUT # 11.4 K/uL (1.8-7.0); NEUT % 88.4 % (50.0-75.0); NRBC % 0.2 % (0.0-2.0); PLATELET COUNT 278 K/uL (130-400); WHITE BLOOD COUNT 12.9 K/uL (4.8-10.8)
[2018-01-06] MEDS: Albuterol-Ipratrop 3 mg / 0.5 (3 ml) UD INH SCH ×3 (07:58→19:30)
[2018-01-06 08:21] LABS: ALB/GLOB RATIO 0.8 (1.0-2.1); ALBUMIN 2.8 g/dL (3.5-5.0); ALT/SGPT 30 U/L (21-72); AST/SGOT 23 U/L (17-59); BLOOD UREA NITROGEN 23 mg/dL (9-20); CALCIUM 9.8 mg/dl (8.6-10.4); GFR NON-AFRICAN AMERICAN > 60
--- NOTE | 2018-01-06 10:03 | CP.PCM.PN ---
Subjective - Date & Time of Evaluation Date of Evaluation: 01/06/18 Time of Evaluation: 10:00 - Subjective Subjective: PT ALERT, LESS SOB. LESS COUGH., NO ABD PAIN. HAD PO DIET. ROS; OTHERWISE NEG. Objective - Vital Signs/Intake and Output Vital Signs (last 24 hours): Temp Pulse Resp BP Pulse Ox 98.3 F 47 L 20 130/63 95 01/06/18 07:00 01/06/18 07:36 01/06/18 07:00 01/06/18 07:00 01/06/18 07:00 Intake and Output: 01/06/18 01/06/18 06:59 18:59 Intake Total 2000 Output Total 800 Balance 1200 - Medications Medications: Current Medications Albuterol/Ipratropium (Duoneb 3 Mg/0.5 Mg (3 Ml) Ud) 3 ml INH RQ6 ALMA Last Admin: 01/06/18 07:58 Dose: 3 ml Heparin Sodium (Porcine) (Heparin) 5,000 units SC Q12 ALMA Last Admin: 01/05/18 22:04 Dose: 5,000 units Sodium Chloride (Sodium Chloride 0.9%) 1,000 mls @ 100 mls/hr IV .Q10H ALMA Last Admin: 01/05/18 23:58 Dose: 100 mls/hr Metronidazole (Flagyl) 500 mg in 100 mls @ 100 mls/hr IVPB Q8H ALMA; Protocol Last Admin: 01/06/18 06:25 Dose: 100 mls/hr Piperacillin Sod/Tazobactam Sod (Zosyn 3.375 Gm Iv Premix) 3.375 gm in 50 mls @ 100 mls/hr IVPB Q8 ALMA; Protocol Last Admin: 01/06/18 05:14 Dose: 100 mls/hr Azithromycin 500 mg/ Sodium (Chloride) 250 mls @ 167 mls/hr IVPB Q24H ALMA; Protocol Last Admin: 01/06/18 02:35 Dose: 167 mls/hr Methylprednisolone (Solu-Medrol) 40 mg IVP Q8 ALMA Last Admin: 01/06/18 05:15 Dose: 40 mg Montelukast Sodium (Singulair) 10 mg PO HS ALMA Last Admin: 01/05/18 22:04 Dose: 10 mg Pantoprazole Sodium (Protonix Inj) 40 mg IVP DAILY ALMA Last Admin: 01/05/18 13:35 Dose: 40 mg Promethazine HCl/Dextromethorphan (Phenergan Dm Syrup) 5 ml PO Q8 PRN PRN Reason: Wheezing Last Admin: 01/05/18 05:26 Dose: 5 ml - Labs Labs: 01/06/18 07:42 01/06/18 07:42 PT 14.7 SECONDS (9.7-12.2) H 01/05/18 00:25 INR 1.3 01/05/18 00:25 APTT 29 SECONDS (21-34) 01/05/18 00:25 - Constitutional Appears: No Acute Distress - Head Exam Head Exam: ATRAUMATIC, NORMOCEPHALIC - Eye Exam Eye Exam: EOMI, Normal appearance - ENT Exam ENT Exam: Mucous Membranes Moist - Neck Exam Neck Exam: Normal Inspection - Respiratory Exam Respiratory Exam: Decreased Breath Sounds, Rhonchi. absent: Respiratory Distress Additional comments: BETTER AIR MOVEMENT. - Cardiovascular Exam Cardiovascular Exam: RRR, +S1, +S2 - GI/Abdominal Exam GI & Abdominal Exam: Soft. absent: Tenderness - Rectal Exam Rectal Exam: Deferred - Extremities Exam Extremities Exam: absent: Calf Tenderness, Pedal Edema - Back Exam Back Exam: absent: CVA tenderness (L), CVA tenderness (R) - Neurological Exam Neurological Exam: Alert, Awake, CN II-XII Intact, Oriented x3 - Psychiatric Exam Psychiatric exam: Normal Affect, Normal Mood - Skin Skin Exam: absent: Rash Assessment and Plan (1) COPD exacerbation Status: Acute (2) Pneumonia Status: Acute (3) Respiratory failure Status: Acute (4) Atrial fibrillation Status: Acute (5) Change in mental status Status: Acute (6) Diverticulitis Status: Acute - Assessment and Plan (Free Text) Assessment: RESP STATUS IMPROVING., LESS BRONCHOSPASM., CONT STEROIDS, TAPER TOLERATED., CONT NEB BD., MONITOR O2 SAT ON 2L. CXR REVIEWED., AFEBRILE ON IV AB. ID EVAL NOTED. INCREASE OOB. DISCUSSED WITH STAFF AT LENGTH.
[2018-01-06 10:05] LABS: BANDS 5 % (0-2); LYMPHOCYTE 6 % (20-40); MONOCYTE 5 % (0-10); NEUTROPHIL 84 % (50-75); NUCLEATED RED BLOOD CELL 1 % (0-0); TOTAL CELLS COUNTED 100
[2018-01-06 10:06] LABS: ANISOCYTOSIS SLIGHT; HYPOCHROMIC SLIGHT; PLATELET ESTIMATE NORMAL (NORMAL); POLYCHROMIC SLIGHT; TOXIC GRANULATION PRESENT
[2018-01-06 10:07] LABS: LARGE PLATELETS PRESENT
[2018-01-06 10:08] LABS: GIANT PLATELETS PRESENT
[2018-01-06] MEDS: Sodium Chloride 0.9% 1,000 ML IV SCH (17:06)
[2018-01-06] MEDS: Promethazine DM 6.25 mg-15 mg/5 ml Syrup PO PRN (18:06)
[2018-01-07] MEDS: Albuterol-Ipratrop 3 mg / 0.5 (3 ml) UD INH SCH ×4 (01:25→19:25)
[2018-01-07] MEDS: Sodium Chloride 0.9% 1,000 ML IV SCH ×3 (02:26→22:13)
[2018-01-07] MEDS: Azithromycin 500 MG in Sodium Chloride 0.9% 250 ML IVPB SCH (02:42)
--- NOTE | 2018-01-07 03:28 | CON ---
DATE: 01/06/2018 CARDIOLOGY CONSULT REASON FOR CONSULTATION: Abnormal EKG and shortness of breath. HISTORY OF PRESENT ILLNESS: The patient is a 77-year-old male, who is a former smoker who was admitted because of shortness of breath and unsteady gait with falling at home. The patient denies any loss of consciousness; and he is unaware of any prior cardiac history. SOCIAL HISTORY: The patient is . He is a former smoker. 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 MEDICATIONS: Current medications: Zithromax 500 mg intravenously daily, albuterol inhaler every 6 hours, Flagyl 500 mg intravenously every 8 hours, heparin 5000 units subcutaneous twice a day, Protonix 40 mg intravenously once a day, Singulair 10 mg once a day, Solu-Medrol 40 mg intravenously every 8 hours, Zosyn 3.375 g intravenously every 8 hours. REVIEW OF SYSTEMS: No fever or chills. No retrosternal chest pain. No hemoptysis. PHYSICAL EXAMINATION: GENERAL: The patient is an elderly male, who does not appear to be in acute distress. VITAL SIGNS: Blood pressure , heart rate 64, temperature 98.3, and respirations 20. HEENT: Normocephalic. CHEST: Diffuse bilateral dry crackles, both anteriorly and posteriorly. HEART: S1 and S2 regular. ABDOMEN: Soft. EXTREMITIES: No edema. No calf tenderness. LABORATORY DATA: Hemoglobin and hematocrit 12.1 and 36.4, white count 12.9, platelet count 278,000. SMA-7: Sodium 141, potassium 4.2, chloride 107, CO2 of 27, glucose 153, BUN 23, and creatinine 0.9. One set of troponin is negative. Lipid profile is within normal limits except for HDL of 24. INR is 1.3, PTT 29. Chest x-ray revealed likely mediastinal bilateral honeycombing suggestive of interstitial lung disease. Head CT scan without contrast limited evaluation of the posterior fossa including cerebellum as well as brain stem, a 5 mm hypodense lesion in the middle lobe, could be a straight artifact; however, chronic lacunar infract at this level cannot be excluded. Correlation of the MRI would be helpful. Chronic microvascular ischemic changes. Partial opacification of the right mastoid air cells. Chest, abdomen, and pelvis CT scan, small foci of calcifications in both kidneys, likely represent short segment of sigmoid colon wall thickening. Differential diagnoses include neoplastic versus sequelae of recurrent diverticulitis, mild cardiomegaly, interval worsening of the nodular opacity in the lungs associated with [id number] bronchiectasis. EKG revealed sinus rhythm with sinus arrhythmia, left bundle branch block. Earlier chest CT scan in June of this year revealed worsening interstitial lung disease/honeycombing consistent with idiopathic pulmonary fibrosis. ASSESSMENT: 1. Interstitial lung disease with evidence of honeycombing. 2. Left bundle branch block, rule out underlying chronic disease. 3. Imbalance gait and recurrent falls, questionable brain stem infarct. RECOMMENDATIONS: Continue current IV Flagyl and IV Zosyn. Continue Solu-Medrol 40 mg intravenous every 8 hours, Singulair 10 mg at bedtime, heparin 5000 units every 12 hours, Zithromax 500 mg intravenously daily. Start aspirin 81 mg once a day. We will obtain repeat head CT scan with visualization of the posterior fossa or a brain MRI instead. Obtain an echocardiogram. Irving Lord MD
--- NOTE | 2018-01-07 04:14 | PN ---
DATE: 01/06/2018 SUBJECTIVE: Today, the patient is somewhat more alert, but complaining of cough with yellow sputum, most of the time whitish and with shortness of breath and generalized weakness. PHYSICAL EXAMINATION: VITAL SIGNS: The patient has a blood pressure of 141/68, pulse 64, respirations 18, temperature 98.4. NECK: Supple. LUNGS: Rales bilaterally in both lungs. HEART: Regular rate and rhythm. ABDOMEN: Soft, nontender with positive bowel sounds. EXTREMITIES: There is no edema. LABORATORY DATA: Labs showed that the WBC 12.9, hemoglobin 12.1, hematocrit 36.4, and platelets 278. Chemistry showed sodium 141, potassium 4.2, chloride 107, bicarb is 27, BUN 23, creatinine 0.9, glucose is 172. PLAN: The plan is that we are going to continue Phenergan with codeine and MRI of the brain will be ordered. The case was discussed with Alma Noriega, the nurse practitioner. Eleazar Marsh MD
[2018-01-07] MEDS: MethylPREDNISolone 40 mg Vial IVP SCH ×3 (05:13→21:31)
[2018-01-07] MEDS: Piperacill/Tazo 3.375gm in Dex 3.375 GM/50 ML BAG IVPB SCH ×3 (05:13→21:32)
[2018-01-07] MEDS: metroNIDAZOLE IV 500 mg/100 ml 500 MG/100 ML BAG IVPB SCH ×3 (06:21→21:32)
[2018-01-07 09:08] LABS: HEMOGLOBIN 11.6 g/dL (12.0-18.0); LYMPH # 0.6 K/uL (1.0-4.3); LYMPH % 4.1 % (20.0-40.0); MEAN CELL VOLUME 92.5 fL (80.0-94.0); MEAN CORPUSCULAR HEMOGLOBIN 30.9 pg (27.0-31.0); MEAN CORPUSCULAR HGB CONC 33.4 g/dL (33.0-37.0); MEAN PLATELET VOLUME 8.8 fL (7.2-11.7); MONO # 0.6 K/uL (0.0-0.8); NEUT # 14.5 K/uL (1.8-7.0); NEUT % 91.9 % (50.0-75.0); PLATELET COUNT 308 K/uL (130-400); RBC 3.76 Mil/uL (4.40-5.90); WHITE BLOOD COUNT 15.7 K/uL (4.8-10.8)
[2018-01-07 09:35] LABS: BLOOD UREA NITROGEN 18 mg/dL (9-20); CALCIUM 7.7 mg/dl (8.6-10.4); GFR NON-AFRICAN AMERICAN > 60
[2018-01-07 10:05] LABS: ANISOCYTOSIS SLIGHT; BANDS 3 % (0-2); LYMPHOCYTE 4 % (20-40); MONOCYTE 1 % (0-10); NEUTROPHIL 92 % (50-75); PLATELET ESTIMATE NORMAL (NORMAL); TOTAL CELLS COUNTED 100
[2018-01-07 10:06] LABS: HYPOCHROMIC SLIGHT; POLYCHROMIC SLIGHT; TOXIC GRANULATION PRESENT
--- NOTE | 2018-01-07 10:21 | CP.PCM.CON ---
History of Present Illness - History of Present Illness History of Present Illness: This is a 77 year old man with a history of diverticular disease of the colon. Patient had screening colonoscopy 07/17/2015 which showed diverticulosis, internal hemorrhoids and "congested mucosa" in the sigmoid colon and distal descending colon. Biopsies were read as benign colonic mucosa with hyperplastic change, negative for active colitis. Patient was [id number]/9/2018 with confusion, unstable gait and falls at home. In addition, he had shortness of breath, cough, fever. Evaluation in the ER showed temperature of 100.1, WBC count 10,900. CT scan without oral contrast showed "moderate wall thickening at the sigmoid colon." At present, patient denies having nausea, vomiting, heartburn, difficulty swallowing, abdominal pain, constipation, and rectal bleeding. He admits haivng diarrhea, twice daily, for the last two days. Review of Systems - Review of Systems All systems: reviewed and no additional remarkable complaints except - Constitutional Constitutional: Chills, Fever, Frequent Falls, Weakness - EENT Eyes: absent: Change in Vision Nose/Mouth/Throat: absent: Sore Throat - Cardiovascular Cardiovascular: absent: Chest Pain - Respiratory Respiratory: Cough, Dyspnea, Wheezing - Gastrointestinal Gastrointestinal: Diarrhea, Nausea, Vomiting. absent: Abdominal Pain, Constipation, Dysphagia, Heartburn, Hematochezia - Genitourinary Genitourinary: absent: Difficulty Urinating - Integumentary Integumentary: absent: Rash Past Patient History - Past Medical History & Family History Past Medical History?: Yes Past Family History: Reviewed and not pertinent - Past Social History Smoking Status: Former Smoker Alcohol: Occasional - CARDIAC Hx Atrial Fibrillation: Yes Hx Hypercholesterolemia: Yes - PULMONARY Hx Chronic Obstructive Pulmonary Disease (COPD): Yes Hx Emphysema: Yes - NEUROLOGICAL Hx Neurological Disorder: No - HEENT Hx HEENT Problems: Yes Hx Cataracts: Yes - RENAL Hx Chronic Kidney Disease: No - ENDOCRINE/METABOLIC Hx Endocrine Disorders: No - HEMATOLOGICAL/ONCOLOGICAL Hx Blood Disorders: No - INTEGUMENTARY Hx Dermatological Problems: No - MUSCULOSKELETAL/RHEUMATOLOGICAL Hx Falls: Yes - GASTROINTESTINAL Hx Gastrointestinal Disorders: No - GENITOURINARY/GYNECOLOGICAL Hx Genitourinary Disorders: No - PSYCHIATRIC Hx Psychophysiologic Disorder: No Hx Substance Use: No - SURGICAL HISTORY Hx Surgeries: No - ANESTHESIA Hx Anesthesia: No Meds Allergies/Adverse Reactions: Allergies Allergy/AdvReac Type Severity Reaction Status Date / Time No Known Allergies Allergy Verified 07/17/15 07:25 - Medications Medications: Current Medications Albuterol/Ipratropium (Duoneb 3 Mg/0.5 Mg (3 Ml) Ud) 3 ml INH RQ6 [facility] Last Admin: 01/07/18 01:25 Dose: Not Given Aspirin (Aspirin Chewable) 81 mg PO DAILY [facility] Last Admin: 01/06/18 17:05 Dose: 81 mg Heparin Sodium (Porcine) (Heparin) 5,000 units SC Q12 [facility] Last Admin: 01/06/18 22:31 Dose: 5,000 units Sodium Chloride (Sodium Chloride 0.9%) 1,000 mls @ 100 mls/hr IV .Q10H [facility] Last Admin: 01/07/18 02:26 Dose: Not Given Metronidazole (Flagyl) 500 mg in 100 mls @ 100 mls/hr IVPB Q8H [facility]; Protocol Last Admin: 01/07/18 06:21 Dose: 100 mls/hr Piperacillin Sod/Tazobactam Sod (Zosyn 3.375 Gm Iv Premix) 3.375 gm in 50 mls @ 100 mls/hr IVPB Q8 [facility]; Protocol Last Admin: 01/07/18 05:13 Dose: 100 mls/hr Azithromycin 500 mg/ Sodium (Chloride) 250 mls @ 167 mls/hr IVPB Q24H [facility]; Protocol Last Admin: 01/07/18 02:42 Dose: 167 mls/hr Methylprednisolone (Solu-Medrol) 40 mg IVP Q8 [facility] Last Admin: 01/07/18 05:13 Dose: 40 mg Montelukast Sodium (Singulair) 10 mg PO HS [facility] Last Admin: 01/06/18 22:31 Dose: 10 mg Pantoprazole Sodium (Protonix Ec Tab) 40 mg PO DAILY [facility] Promethazine HCl/Dextromethorphan (Phenergan Dm Syrup) 5 ml PO Q8 PRN PRN Reason: Wheezing Last Admin: 01/06/18 18:06 Dose: 5 ml Physical Exam - Constitutional Appears: No Acute Distress - Head Exam Head Exam: ATRAUMATIC, NORMOCEPHALIC - Eye Exam Eye Exam: EOMI, PERRL - Neck Exam Neck exam: Negative for: Lymphadenopathy, Thyromegaly - Respiratory Exam Respiratory Exam: NORMAL BREATHING PATTERN. absent: Rales, Rhonchi, Wheezes - Cardiovascular Exam Cardiovascular Exam: REGULAR RHYTHM, +S1, +S2. absent: Gallop, Rubs, Systolic Murmur - GI/Abdominal Exam GI & Abdominal Exam: Normal Bowel Sounds, Soft. absent: Mass, Organomegaly, Tenderness - Rectal Exam Rectal Exam: Deferred - Extremities Exam Extremities exam: Negative for: calf tenderness, pedal edema Results - Vital Signs Recent Vital Signs: Last Vital Signs Temp 98 F 01/07/18 07:00 Pulse 55 L 01/07/18 08:17 Resp 18 01/07/18 07:00 BP 168/72 H 01/07/18 07:00 Pulse Ox 97 01/07/18 07:00 - Labs Result Diagrams: 01/07/18 09:00 01/07/18 09:00 Labs: Laboratory Results - last 24 hr 01/07/18 01/07/18 09:00 09:00 WBC 15.7 H RBC 3.76 L Hgb 11.6 L Hct 34.8 L MCV 92.5 MCH 30.9 MCHC 33.4 RDW 14.0 Plt Count 308 MPV 8.8 Neut % (Auto) 91.9 H Lymph % (Auto) 4.1 L [place] % (Auto) 4.0 Eos % (Auto) 0.0 Baso % (Auto) 0.0 Neut # (Auto) 14.5 H Lymph # (Auto) 0.6 L [place] # (Auto) 0.6 Eos # (Auto) 0.0 Baso # (Auto) 0.0 Neutrophils % (Manual) 92 H Band Neutrophils % 3 H Lymphocytes % (Manual) 4 L Monocytes % (Manual) 1 Toxic Granulation Present Platelet Estimate Normal Polychromasia Slight Hypochromasia (manual) Slight Anisocytosis (manual) Slight Sodium 141 Potassium 3.2 L Chloride 114 H Carbon Dioxide 23 Anion Gap 8 L BUN 18 Creatinine 0.7 L Est GFR ( Amer) > 60 Est GFR (Non-Af Amer) > 60 Random Glucose 129 H Calcium 7.7 L Assessment & Plan (1) Diverticulosis of colon Assessment and Plan: Patient has a history of diverticulosis documented by colonoscopy and CT scan. There is thickening of the wall of the colon, which may be seen with uncomplicated diverticulosis, and no clear-cut evidence of diverticulitis. Since the original CT scan was done without oral contrast, we will repeat the scan with oral contrast. Status: Acute
[2018-01-07] MEDS: Pantoprazole 40 mg EC Tab PO SCH (10:57)
[2018-01-07] MEDS: Promethazine DM 6.25 mg-15 mg/5 ml Syrup PO PRN (10:57)
[2018-01-07] MEDS ORDERED: Iohexol 240 (50 ml) PO ONE (12:00)
[2018-01-07] MEDS ORDERED: Potassium Chloride 20 mEq ER Tab PO ONE (12:30)
[2018-01-07] MEDS ORDERED: Iodixanol 320 MG/ML 100 ML BOTTLE IV ONE (14:10)
[2018-01-07] MEDS: Promethazine/Cod 6.25mg-10mg/5ml Syr UD PO SCH ×2 (14:54→17:58)
--- NOTE | 2018-01-07 16:21 | CT ---
Date of service: 01/07/2018 PROCEDURE: CT Abdomen and Pelvis with Oral contrast. HISTORY: Diverticulitis COMPARISON: Comparison made with prior CTA chest abdomen pelvis 01/05/2018 TECHNIQUE: Contiguous axial images of the abdomen and pelvis following oral and intravenous injection of approximately 100 cc Omnipaque 240 contrast material. Additional 2D sagittal and coronal l reformats generated. Radiation dose: Total exam DLP = 563.16 mGy-cm. This CT exam was performed using one or more of the following dose reduction techniques: Automated exposure control, adjustment of the mA and/or kV according to patient size, and/or use of iterative reconstruction technique. FINDINGS: This examination is limited by motion artifact. LOWER THORAX: Extensive interstitial disease consistent with underlying chronic interstitial fibrosis however superimposed interstitial infiltrate or edema cannot be completely excluded.. Small bilateral effusions and atelectatic changes are also felt to be present left greater than right. Heart size is of borderline/mildly enlarged unchanged. No significant pericardial effusion Small hiatal hernia. Bilateral minimal changes of gynecomastia. LIVER: The liver exhibits normal size. No evidence of hepatic masses collections or calcifications. Mild fatty hepatic infiltration. Portal and splenic veins are opacified. GALLBLADDER AND BILE DUCTS: Gallbladder is incompletely distended. No evidence of intraluminal gallbladder calculi. PANCREAS: Pancreas appears slightly atrophic and fatty replaced. No pancreatic masses or collections.. SPLEEN: Spleen exhibits normal size and attenuation pattern without masses collections or calcifications. ADRENALS: No adrenal lesions. KIDNEYS AND URETERS: Unremarkable. No stone or hydronephrosis. BLADDER: Urinary bladder is incompletely distended which in part accounts for urinalysis recommended to exclude cystitis. Cystitis. REPRODUCTIVE: Prostate gland measures approximately 3.65 cm in transverse dimension. Faint calcifications are present within the prostate gland. APPENDIX: The appendix is seen with complete certainty however no obvious inflammatory changes right lower quadrant of the abdomen. BOWEL: Evaluation of the bowel is somewhat limited due to motion artifact as well as incomplete opacification. The stomach is incompletely distended with food opacified food debris liquid and air. Visualized loops of small bowel exhibit normal contour and caliber. No evidence of acute mechanical small bowel obstruction. Diverticulosis. Again noted is wall thickening of a segment of the sigmoid colon that probably represents mild acute diverticulitis however the possibility of a underlying neoplasm cannot be excluded. Clinical correlation recommended. Follow-up colonoscopy could be obtained if not recently performed for confirmation PERITONEUM: Unremarkable. No fluid collection. No free air. Small bilateral fat containing inguinal hernias right larger than left.. LYMPH NODES: Unremarkable. No enlarged lymph nodes. VASCULATURE: Unremarkable. No aortic aneurysm. Minor aortic atherosclerotic calcification or mural plaque present. BONES: Mild multilevel degenerative spondylosis of the lower thoracic and lumbar spine. OTHER FINDINGS: None. IMPRESSION: Limited motion degraded study. Diverticulosis some with persistent wall thickening of a short segment of the sigmoid colon likely due to acute diverticulitis however the possibility of an underlying mass lesion cannot be excluded. Consider follow-up of colonoscopy if not recently performed. Small bilateral effusions and atelectasis left larger than right.. Mild fatty hepatic infiltration. Extensive interstitial disease as described.
[2018-01-07 16:22] VITALS: RESP 20
--- NOTE | 2018-01-07 16:32 | CP.PCM.PN ---
Subjective - Date & Time of Evaluation Date of Evaluation: 01/07/18 Time of Evaluation: 16:29 - Subjective Subjective: PT ALERT, MORE COUGH. +CLEAR SPUTUM., EATING OK. ROS; OTHERWISE NEG. Objective - Vital Signs/Intake and Output Vital Signs (last 24 hours): Temp Pulse Resp BP Pulse Ox 97.9 F 82 20 167/72 H 94 L 01/07/18 15:21 01/07/18 16:00 01/07/18 15:21 01/07/18 15:21 01/07/18 15:21 Intake and Output: 01/07/18 01/07/18 06:59 18:59 Intake Total 2029 1099 Balance 2029 1100 - Medications Medications: Current Medications Albuterol/Ipratropium (Duoneb 3 Mg/0.5 Mg (3 Ml) Ud) 3 ml INH RQ6 [facility] Last Admin: 01/07/18 13:45 Dose: Not Given Aspirin (Aspirin Chewable) 81 mg PO DAILY [facility] Last Admin: 01/07/18 10:57 Dose: 81 mg Heparin Sodium (Porcine) (Heparin) 5,000 units SC Q12 [facility] Last Admin: 01/07/18 10:57 Dose: 5,000 units Sodium Chloride (Sodium Chloride 0.9%) 1,000 mls @ 100 mls/hr IV .Q10H [facility] Last Admin: 01/07/18 10:58 Dose: 100 mls/hr Metronidazole (Flagyl) 500 mg in 100 mls @ 100 mls/hr IVPB Q8H [facility]; Protocol Last Admin: 01/07/18 14:54 Dose: 100 mls/hr Piperacillin Sod/Tazobactam Sod (Zosyn 3.375 Gm Iv Premix) 3.375 gm in 50 mls @ 100 mls/hr IVPB Q8 [facility]; Protocol Last Admin: 01/07/18 14:54 Dose: 100 mls/hr Azithromycin 500 mg/ Sodium (Chloride) 250 mls @ 167 mls/hr IVPB Q24H [facility]; Protocol Last Admin: 01/07/18 02:42 Dose: 167 mls/hr Methylprednisolone (Solu-Medrol) 40 mg IVP Q8 [facility] Last Admin: 01/07/18 14:55 Dose: 40 mg Montelukast Sodium (Singulair) 10 mg PO HS [facility] Last Admin: 01/06/18 22:31 Dose: 10 mg Pantoprazole Sodium (Protonix Ec Tab) 40 mg PO DAILY [facility] Last Admin: 01/07/18 10:57 Dose: 40 mg Promethazine HCl/Codeine (Phenergan/Codeine Oral Syrup) 5 ml PO TID [facility] Last Admin: 01/07/18 14:54 Dose: 5 ml - Labs Labs: 01/07/18 09:00 01/07/18 09:00 PT 14.7 SECONDS (9.7-12.2) H 01/05/18 00:25 INR 1.3 01/05/18 00:25 APTT 29 SECONDS (21-34) 01/05/18 00:25 - Constitutional Appears: No Acute Distress - Head Exam Head Exam: ATRAUMATIC, NORMOCEPHALIC - Eye Exam Eye Exam: EOMI, Normal appearance - ENT Exam ENT Exam: Mucous Membranes Moist - Neck Exam Neck Exam: Normal Inspection - Respiratory Exam Respiratory Exam: Rhonchi Additional comments: FAIR AIR MOVEMENT. - Cardiovascular Exam Cardiovascular Exam: RRR, +S1, +S2 - GI/Abdominal Exam GI & Abdominal Exam: Soft. absent: Tenderness - Rectal Exam Rectal Exam: Deferred - Extremities Exam Extremities Exam: absent: Calf Tenderness, Pedal Edema - Back Exam Back Exam: absent: CVA tenderness (L), CVA tenderness (R) - Neurological Exam Neurological Exam: Alert, Awake, CN II-XII Intact - Psychiatric Exam Psychiatric exam: Normal Mood - Skin Skin Exam: absent: Rash Assessment and Plan (1) COPD exacerbation Status: Acute (2) Pneumonia Status: Acute (3) Respiratory failure Status: Acute (4) Atrial fibrillation Status: Acute (5) Change in mental status Status: Acute (6) Diverticulitis Status: Acute - Assessment and Plan (Free Text) Assessment: RESP STATUS WITH INCREASED BRONCHOSPASM TODAY, CONT IV STEROIDS, NEB BD., MONITOR O2 SAT. CXR REVIEWED. CARDIO EVAL NOTED. GI W/U IN PROGRESS. DISCUSSED WITH STAFF AND FAMILY AT BEDSIDE.
--- NOTE | 2018-01-07 17:04 | CT ---
Date of service: 01/07/2018 PROCEDURE: CT HEAD WITHOUT CONTRAST. HISTORY: posterior fossa eval COMPARISON: Comparison made with prior CT scan 01/05/2018 TECHNIQUE: Axial computed tomography images were obtained through the head/brain without intravenous contrast.. Note however that circulating intravenous contrast material present from prior CT contrast-enhanced CT scan of the abdomen and pelvis obtained approximately 1 hr earlier same day. Radiation dose: Total exam DLP = 1073.8 mGy-cm. This CT exam was performed using one or more of the following dose reduction techniques: Automated exposure control, adjustment of the mA and/or kV according to patient size, and/or use of iterative reconstruction technique. FINDINGS: HEMORRHAGE: No intracranial hemorrhage. BRAIN: Mild diffuse/confluent chronic periventricular white matter ischemic changes are again seen extending peripherally into the deep and subcortical regions of both cerebral hemispheres. Redemonstrated are low-attenuation foci both posterior inferolateral basal nuclei that may represent dilated perivascular spaces and/or tiny chronic lacunar infarcts... Few smaller more discrete chronic appearing bilateral basal nuclei lacunar type infarcts also present.. Limited evaluation of the posterior fossa structures. If further evaluation is posterior fossa is required consider follow-up MRI. Moderate generalized volume loss. Minor vascular calcifications both carotid siphons. VENTRICLES: No obstructive hydrocephalus.. A cavum velum interpositum. CALVARIUM: Unremarkable. PARANASAL SINUSES: Unremarkable as visualized. No significant inflammatory changes. MASTOID AIR CELLS: Unremarkable as visualized. No inflammatory changes. OTHER FINDINGS: None. IMPRESSION: No acute intracranial hemorrhage. Mild chronic white matter and basal nuclei ischemic changes.. Moderate generalized volume loss. If further evaluation of the posterior fossa structures is required, consider follow-up MRI.
--- NOTE | 2018-01-07 18:06 | CP.PCM.PN ---
Subjective - Date & Time of Evaluation Date of Evaluation: 01/07/18 Time of Evaluation: 08:00 - Subjective Subjective: less SOB no fever clear phlegm no chest pain Objective - Vital Signs/Intake and Output Vital Signs (last 24 hours): Temp Pulse Resp BP Pulse Ox 97.9 F 82 20 167/72 H 94 L 01/07/18 15:21 01/07/18 16:00 01/07/18 15:21 01/07/18 15:21 01/07/18 15:21 Intake and Output: 01/07/18 01/07/18 06:59 18:59 Intake Total 2029 1099 Balance 2029 1099 - Medications Medications: Current Medications Albuterol/Ipratropium (Duoneb 3 Mg/0.5 Mg (3 Ml) Ud) 3 ml INH RQ6 [facility] Last Admin: 01/07/18 13:45 Dose: Not Given Aspirin (Aspirin Chewable) 81 mg PO DAILY [facility] Last Admin: 01/07/18 10:57 Dose: 81 mg Heparin Sodium (Porcine) (Heparin) 5,000 units SC Q12 [facility] Last Admin: 01/07/18 10:57 Dose: 5,000 units Sodium Chloride (Sodium Chloride 0.9%) 1,000 mls @ 100 mls/hr IV .Q10H [facility] Last Admin: 01/07/18 10:58 Dose: 100 mls/hr Metronidazole (Flagyl) 500 mg in 100 mls @ 100 mls/hr IVPB Q8H [facility]; Protocol Last Admin: 01/07/18 14:54 Dose: 100 mls/hr Piperacillin Sod/Tazobactam Sod (Zosyn 3.375 Gm Iv Premix) 3.375 gm in 50 mls @ 100 mls/hr IVPB Q8 [facility]; Protocol Last Admin: 01/07/18 14:54 Dose: 100 mls/hr Azithromycin 500 mg/ Sodium (Chloride) 250 mls @ 167 mls/hr IVPB Q24H [facility]; Protocol Last Admin: 01/07/18 02:42 Dose: 167 mls/hr Methylprednisolone (Solu-Medrol) 40 mg IVP Q8 [facility] Last Admin: 01/07/18 14:55 Dose: 40 mg Montelukast Sodium (Singulair) 10 mg PO HS [facility] Last Admin: 01/06/18 22:31 Dose: 10 mg Pantoprazole Sodium (Protonix Ec Tab) 40 mg PO DAILY [facility] Last Admin: 01/07/18 10:57 Dose: 40 mg Promethazine HCl/Codeine (Phenergan/Codeine Oral Syrup) 5 ml PO TID [facility] Last Admin: 01/07/18 17:58 Dose: 5 ml - Labs Labs: 01/07/18 09:00 01/07/18 09:00 PT 14.7 SECONDS (9.7-12.2) H 01/05/18 00:25 INR 1.3 01/05/18 00:25 APTT 29 SECONDS (21-34) 01/05/18 00:25 - Constitutional Appears: Non-toxic, Chronically Ill - Head Exam Head Exam: NORMOCEPHALIC - Eye Exam Eye Exam: absent: Scleral icterus - ENT Exam ENT Exam: Mucous Membranes Dry - Neck Exam Neck Exam: absent: Lymphadenopathy - Respiratory Exam Respiratory Exam: Decreased Breath Sounds - Cardiovascular Exam Cardiovascular Exam: REGULAR RHYTHM - GI/Abdominal Exam GI & Abdominal Exam: Distended, Soft - Rectal Exam Rectal Exam: Deferred - Exam Exam: NORMAL INSPECTION Assessment and Plan (1) Atrial fibrillation Status: Acute (2) COPD exacerbation Status: Acute (3) Diverticulitis Status: Acute (4) Interstitial lung disease Status: Acute (5) Pneumonia Status: Acute (6) Nephrolithiasis Status: Acute
--- NOTE | 2018-01-07 20:54 | PN ---
DATE: 01/07/2018 FOLLOWUP SUBJECTIVE: The patient is mildly short of breath. He denies any retrosternal chest pain. PHYSICAL EXAMINATION: VITAL SIGNS: Blood pressure 162/72, heart rate 82, earlier heart rate was 65, temperature 98, respirations 18. HEENT: Normocephalic. CHEST: Bilateral coarse dry crepitations. HEART: S1 and S2 are regular. ABDOMEN: Soft. EXTREMITIES: No edema. LABORATORY DATA: Hemoglobin and hematocrit are 11.6 and 34.8, white count 15.7 and platelet count 107,000. Today's SMA-7: Sodium 141, potassium 3.2, chloride 114, CO2 of 23, glucose 129, BUN 18, creatinine 0.7. Abdomen and pelvis CT scan was performed. The report is still pending. ASSESSMENT: 1. Interstitial lung disease. 2. Left bundle-branch block. 3. Imbalanced gait with history of recurrent falls and questionable brainstem infarct. RECOMMENDATIONS: Continue aspirin 81 mg once a day, Zithromax 500 mg intravenously daily, Flagyl 500 mg intravenously every 8 hours, Solu-Medrol 40 mg intravenously every 8 hours, Zosyn at 3.675 g intravenously every 8 hours. I will order repeat chest CT scan without contrast to visualize . The patient will undergo echo tomorrow. Irving Lord MD
[2018-01-08] MEDS: Albuterol-Ipratrop 3 mg / 0.5 (3 ml) UD INH SCH ×4 (01:10→19:26)
[2018-01-08] MEDS: Azithromycin 500 MG in Sodium Chloride 0.9% 250 ML IVPB SCH (01:49)
[2018-01-08] MEDS: Sodium Chloride 0.9% 1,000 ML IV SCH (01:50)
--- NOTE | 2018-01-08 02:06 | PN ---
DATE: 01/07/2018 SUBJECTIVE: Today, the patient is feeling much better than yesterday in the way of mild decrease of the cough and shortness of breath. The patient denies chest pain but admits having some palpitations at times. PHYSICAL EXAMINATION: VITAL SIGNS: Blood pressure 167/72, pulse 62, respiration 20, temperature 97.9. HEENT: Head is normocephalic. LUNGS: There are some rales heard in the lungs. HEART: Regular rate and rhythm. ABDOMEN: Soft and nontender. EXTREMITIES: There is no edema. LABORATORY DATA: Labs done showed WBC 16.7, hemoglobin 11.6, hematocrit 34.8, and platelets are 308. Chemistry showed sodium 141, potassium 3.2, bicarb is 114, BUN 18, creatinine 0.7, glucose is 129, and calcium 7.7. ASSESSMENT AND PLAN: The patient is due to have MRI of the brain because of a lesion found in the CT of the head that should be done in the morning. Case was discussed with the patient. Eleazar Marsh MD
[2018-01-08] MEDS: Piperacill/Tazo 3.375gm in Dex 3.375 GM/50 ML BAG IVPB SCH ×3 (05:09→21:29)
[2018-01-08] MEDS: metroNIDAZOLE IV 500 mg/100 ml 500 MG/100 ML BAG IVPB SCH ×3 (06:29→21:29)
--- NOTE | 2018-01-08 08:01 | CP.PCM.PN ---
Subjective - Date & Time of Evaluation Date of Evaluation: 01/08/18 Time of Evaluation: 07:58 - Subjective Subjective: No abdominal pain, N/V/C/D. No bleeding. +SOB with exertion Repeat CT with oral contrast shows some "diverticulitis of sigmoid", r/o mass lesion Objective - Vital Signs/Intake and Output Vital Signs (last 24 hours): Temp Pulse Resp BP Pulse Ox 98.3 F 59 L 20 159/79 H 95 01/07/18 23:05 01/08/18 04:00 01/07/18 23:05 01/07/18 23:05 01/07/18 23:05 Intake and Output: 01/08/18 01/08/18 06:59 18:59 Intake Total 2240 Output Total 750 Balance 1490 - Medications Medications: Current Medications Albuterol/Ipratropium (Duoneb 3 Mg/0.5 Mg (3 Ml) Ud) 3 ml INH RQ6 [facility] Last Admin: 01/08/18 07:50 Dose: 3 ml Aspirin (Aspirin Chewable) 81 mg PO DAILY [facility] Last Admin: 01/07/18 10:57 Dose: 81 mg Heparin Sodium (Porcine) (Heparin) 5,000 units SC Q12 [facility] Last Admin: 01/07/18 21:31 Dose: 5,000 units Metronidazole (Flagyl) 500 mg in 100 mls @ 100 mls/hr IVPB Q8H [facility]; Protocol Last Admin: 01/08/18 06:29 Dose: 100 mls/hr Piperacillin Sod/Tazobactam Sod (Zosyn 3.375 Gm Iv Premix) 3.375 gm in 50 mls @ 100 mls/hr IVPB Q8 [facility]; Protocol Last Admin: 01/08/18 05:09 Dose: 100 mls/hr Azithromycin 500 mg/ Sodium (Chloride) 250 mls @ 167 mls/hr IVPB Q24H [facility]; Pr otocol Last Admin: 01/08/18 01:49 Dose: 167 mls/hr Methylprednisolone (Solu-Medrol) 40 mg IVP Q12 [facility] Montelukast Sodium (Singulair) 10 mg PO HS [facility] Last Admin: 01/07/18 21:31 Dose: 10 mg Pantoprazole Sodium (Protonix Ec Tab) 40 mg PO DAILY [facility] Last Admin: 01/07/18 10:57 Dose: 40 mg Promethazine HCl/Codeine (Phenergan/Codeine Oral Syrup) 5 ml PO TID [facility] Last Admin: 01/07/18 17:58 Dose: 5 ml - Labs Labs: 01/07/18 09:00 01/07/18 09:00 PT 14.7 SECONDS (9.7-12.2) H 01/05/18 00:25 INR 1.3 01/05/18 00:25 APTT 29 SECONDS (21-34) 01/05/18 00:25 - Constitutional Appears: No Acute Distress - Head Exam Head Exam: ATRAUMATIC, NORMOCEPHALIC - Eye Exam Eye Exam: EOMI, PERRL - Respiratory Exam Respiratory Exam: Decreased Breath Sounds, Rhonchi - Cardiovascular Exam Cardiovascular Exam: REGULAR RHYTHM, +S1 - GI/Abdominal Exam GI & Abdominal Exam: Soft, Normal Bowel Sounds. absent: Distended, Guarding, Tenderness, Mass, Rebound - Extremities Exam Extremities Exam: Normal Inspection Assessment and Plan (1) Abnormal CT of the abdomen Assessment & Plan: CT Scan consistent with chronic diverticular disease with mild inflammatory component for diverticulitits on contrast CT. IV antibiotics followed by po for 10-14 day course. Advise out patient Colonoscopy when resolved to assess and rule out possible mass lesion as described. Prior colonoscopy done 2-3 years ago but by other physician. Early mass lesion could have been missed. Status: Acute (2) Diverticulitis Assessment & Plan: as above. Status: Acute
[2018-01-08 08:13] LABS: ALBUMIN 3.4 g/dL (3.5-5.0); ALT/SGPT 38 U/L (21-72); AST/SGOT 52 U/L (17-59); BLOOD UREA NITROGEN 18 mg/dL (9-20); CALCIUM 9.8 mg/dl (8.6-10.4); GFR NON-AFRICAN AMERICAN > 60
[2018-01-08 09:02] LABS: BASO # 0.1 K/uL (0.0-0.2); BASO % 0.4 % (0.0-2.0); LYMPH # 0.9 K/uL (1.0-4.3); LYMPH % 7.1 % (20.0-40.0); MEAN CELL VOLUME 92.6 fL (80.0-94.0); MEAN CORPUSCULAR HEMOGLOBIN 31.3 pg (27.0-31.0); MEAN CORPUSCULAR HGB CONC 33.8 g/dL (33.0-37.0); MONO # 0.7 K/uL (0.0-0.8); MONO % 5.3 % (0.0-10.0); NEUT # 11.4 K/uL (1.8-7.0); NEUT % 87.2 % (50.0-75.0); NRBC % 0.1 % (0.0-2.0); RBC 4.43 Mil/uL (4.40-5.90); RED CELL DISTRIBUTION WIDTH 14.2 % (11.5-14.5); WHITE BLOOD COUNT 13.1 K/uL (4.8-10.8)
[2018-01-08 09:03] LABS: HEMOGLOBIN 13.9 g/dL (12.0-18.0); PLATELET COUNT 412 K/uL (130-400)
[2018-01-08] MEDS ORDERED: MethylPREDNISolone 40 mg Vial IVP SCH (10:00)
[2018-01-08 10:04] LABS: BANDS 1 % (0-2); LYMPHOCYTE 5 % (20-40); MONOCYTE 6 % (0-10); NEUTROPHIL 87 % (50-75); PLATELET ESTIMATE NORMAL (NORMAL); REACTIVE LYMPHOCYTES 1 % (0-0); TOTAL CELLS COUNTED 100
[2018-01-08] MEDS: Promethazine/Cod 6.25mg-10mg/5ml Syr UD PO SCH ×3 (10:15→17:38)
[2018-01-08] MEDS: Pantoprazole 40 mg EC Tab PO SCH (10:15)
--- NOTE | 2018-01-08 10:51 | HP ---
HISTORY OF PRESENT ILLNESS: The patient is a 77-year-old male who was brought by because of altered mental status for the past 2 days. The patient was somewhat confused and also with unsteady gait. Even the patient has fell at home. Actually when the patient was in the emergency room, the patient was alert, but did not answer the questions appropriately. The patient was seen on the floor; and the patient answered some questions, but not all the time to the questions. ALLERGIES: THE PATIENT HAS NO KNOWN ALLERGY. PAST MEDICAL HISTORY: The patient has history of COPD and chronic bronchitis. SOCIAL HISTORY: The patient is living with his . Denied any smoking at this point or alcohol abuse. FAMILY HISTORY: No acute disease. REVIEW OF SYSTEMS: RESPIRATORY SYSTEM: The patient has congestive cough with some yellowish sputum, shortness of breath with exertion. CARDIOVASCULAR: The patient denied any chest pain. GASTROINTESTINAL: The patient has anorexia. GENITOURINARY: No dysuria, but there is nocturia 2 or 3 times. NEUROLOGIC: The patient is alert and awake, but some times answers inappropriately to questions. PHYSICAL EXAMINATION: VITAL SIGNS: The patient has blood pressure of 138/90, pulse is 83, respirations 22, and temperature 98.1. HEENT: Head is normocephalic. The patient had dentures. LUNGS: There are some rales bilaterally. HEART: Regular rate and rhythm. ABDOMEN: Soft and nontender. Positive bowel sounds. EXTREMITIES: There is no edema. LABORATORY DATA: The patient had test done in the ER, chest x-ray showed severe chronic interstitial thickening in both lungs. There is linear atelectasis and scarring in the right lung base. The patient also had a CT of the head that showed that there is a 5 mm hypodensity over the medulla may be sequelae of a strict artifact or a chronic looking lacunar infarct as this could not be excluded. Also the patient has a CT of the lung with interval worsening of ventricular nodular opacity in both lobes associated with mild to moderate bronchiectasis seen in the previous exam. The findings are nonspecific and likely represent and pneumonitis. IMPRESSION: The patient was admitted with diagnoses of: 1. Altered mental status. 2. Pneumonia. 3. Interstitial infiltrate. 4. Chronic obstructive pulmonary disease versus emphysema. PLAN: The patient will have a consult with Dr. Myers, Pulmonary and Dr. Lyn, ID. Order will be written including albuterol, Phenergan DM, Protonix, montelukast, and the patient will be on IV fluid also and DuoNeb. Antibiotic will be given, . Eleazar Marsh MD
--- NOTE | 2018-01-08 11:37 | CP.PCM.PN ---
Subjective - Date & Time of Evaluation Date of Evaluation: 01/08/18 Time of Evaluation: 11:34 - Subjective Subjective: PT ALERT, FEELS BETTER. LESS COUGH. ROS; OTHERWISE NEG. Objective - Vital Signs/Intake and Output Vital Signs (last 24 hours): Temp Pulse Resp BP Pulse Ox 98.1 F 58 L 20 156/85 H 96 01/08/18 07:00 01/08/18 07:00 01/08/18 07:00 01/08/18 07:00 01/08/18 07:00 Intake and Output: 01/08/18 01/08/18 06:59 18:59 Intake Total 2240 Output Total 750 Balance 1490 - Medications Medications: Current Medications Albuterol/Ipratropium (Duoneb 3 Mg/0.5 Mg (3 Ml) Ud) 3 ml INH RQ6 [facility] Last Admin: 01/08/18 07:50 Dose: 3 ml Aspirin (Aspirin Chewable) 81 mg PO DAILY [facility] Last Admin: 01/08/18 10:14 Dose: 81 mg Metronidazole (Flagyl) 500 mg in 100 mls @ 100 mls/hr IVPB Q8H [facility]; Protocol Last Admin: 01/08/18 06:29 Dose: 100 mls/hr Piperacillin Sod/Tazobactam Sod (Zosyn 3.375 Gm Iv Premix) 3.375 gm in 50 mls @ 100 mls/hr IVPB Q8 [facility]; Protocol Last Admin: 01/08/18 05:09 Dose: 100 mls/hr Azithromycin 500 mg/ Sodium (Chloride) 250 mls @ 167 mls/hr IVPB Q24H [facility]; Protocol Last Admin: 01/08/18 01:49 Dose: 167 mls/hr Methylprednisolone (Solu-Medrol) 40 mg IVP Q12 [facility] Last Admin: 01/08/18 10:15 Dose: 40 mg Montelukast Sodium (Singulair) 10 mg PO HS [facility] Last Admin: 01/07/18 21:31 Dose: 10 mg Pantoprazole Sodium (Protonix Ec Tab) 40 mg PO DAILY [facility] Last Admin: 01/08/18 10:15 Dose: 40 mg Promethazine HCl/Codeine (Phenergan/Codeine Oral Syrup) 5 ml PO TID [facility] Last Admin: 01/08/18 10:15 Dose: 5 ml - Labs Labs: 01/08/18 06:21 01/08/18 07:11 PT 14.7 SECONDS (9.7-12.2) H 01/05/18 00:25 INR 1.3 01/05/18 00:25 APTT 29 SECONDS (21-34) 01/05/18 00:25 - Constitutional Appears: No Acute Distress - Head Exam Head Exam: ATRAUMATIC, NORMOCEPHALIC - Eye Exam Eye Exam: EOMI, Normal appearance - ENT Exam ENT Exam: Mucous Membranes Moist - Respiratory Exam Respiratory Exam: Decreased Breath Sounds, Rhonchi Additional comments: BETTER AIR MOVEMENT. - Cardiovascular Exam Cardiovascular Exam: RRR, +S1, +S2 - GI/Abdominal Exam GI & Abdominal Exam: Soft. absent: Tenderness - Rectal Exam Rectal Exam: Deferred - Extremities Exam Extremities Exam: absent: Calf Tenderness, Pedal Edema - Back Exam Back Exam: absent: CVA tenderness (L), CVA tenderness (R) - Neurological Exam Neurological Exam: Alert, Awake, CN II-XII Intact - Psychiatric Exam Psychiatric exam: Normal Mood - Skin Skin Exam: absent: Rash Assessment and Plan (1) COPD exacerbation Status: Acute (2) Pneumonia Status: Acute (3) Respiratory failure Status: Acute (4) Atrial fibrillation Status: Acute (5) Change in mental status Status: Acute (6) Diverticulitis Status: Acute - Assessment and Plan (Free Text) Assessment: RESP STATUS IMPROVING. CONT NEB BD., STEROID TAPER TOLERATED. ADEQ OXYGENATION. AFEBRILE ON AB. CXR REVIEWED. F/U MRI RESULTS. DISCUSSED WITH STAFF AT LENGTH.
--- NOTE | 2018-01-08 11:57 | MRI ---
Date of service: 01/08/2018 PROCEDURE: MRI BRAIN WITHOUT CONTRAST HISTORY: syncope COMPARISON: Noncontrast head CT from 01/05/2018 and 01/07/2018. TECHNIQUE: Multiplanar, multisequence MR images of the brain were obtained without intravenous contrast enhancement. FINDINGS: HEMORRHAGE: None DWI: No evidence of an acute or early subacute infarction. BRAIN PARENCHYMA: There are mild chronic microangiopathic changes. There is no mass, mass effect or abnormal extra-axial fluid collection. There is no territorial infarction. The midline sagittal structures are normal. VENTRICLES: There is mild age-related global parenchymal volume loss and proportionate enlargement of the ventricles and cortical sulci. There is a cavum vergae and interpositum. CRANIUM: There is normal bone marrow signal pattern. ORBITS: Grossly unremarkable. PARANASAL SINUSES/MASTOIDS: There is mild mucosal thickening in the paranasal sinuses and right mastoid effusion. The left mastoid air cells are clear. VASCULAR SYSTEM: There are normal signal voids in the larger intracranial arteries. OTHER FINDINGS: None. IMPRESSION: No acute intracranial abnormality. Mild chronic microangiopathic changes and mild age-related global parenchymal volume loss.
--- NOTE | 2018-01-08 13:48 | CARD ---
APPROVED REPORT Date of service: 01/06/2018 EKG Measurement Heart [id number] <Conclusion> Normal sinus rhythm with sinus arrhythmia Left bundle branch block Abnormal ECG
--- NOTE | 2018-01-08 20:20 | PN ---
DATE: 01/08/2018 SUBJECTIVE: The patient is currently sleeping. The family are at the bedside, the son and the . I went to the patient's room twice, and he was sleeping, and I preferred not to wake him up. He appears comfortable. PHYSICAL EXAMINATION: VITAL SIGNS: Blood pressure 156/85, heart rate 58, temperature 98.1. LABORATORY DATA: Today's laboratories, CBC: WBC 15.1, hemoglobin 15.9, hematocrit 41, and platelet count 412,000. Today's SMA-7: Sodium 139, potassium 3.8, chloride 100, CO2 of 32, glucose 123, BUN 18, and creatinine 0.9. Brain MRI report, no acute intracranial abnormality. Mild chronic microangiopathic changes. Preliminary angio with echocardiogram study revealed mildly persistent ejection which was measured at 45%. ASSESSMENT: 1. Interstitial lung disease. 2. Left bundle-branch block. 3. Mildly depressed left ventricular systolic function. 4. Recurrent falls. RECOMMENDATION: I just follow the repeat head CT scan with visualization of the posterior fossa which revealed mild chronic white matter and basal nuclei ischemic changes and moderate generalized volume loss. Continue current aspirin 81 mg once a day, IV Zithromax and IV Flagyl, and continue Singulair 10 mg once a day, Solu-Medrol 20 mg twice a day, and Zosyn 3.375 g intravenously daily. I will start enalapril 2.5 mg daily. The patient is not a suitable candidate for the therapy. Cardiac catheterization may be considered at the later stage after improvement of the patient's pulmonary status to rule out ischemic for the patient's depressed left ventricular systolic function. Irving Lord MD
[2018-01-08] MEDS: MethylPREDNISolone 40 mg Vial IVP SCH (21:29)
--- NOTE | 2018-01-09 02:00 | PN ---
DATE: 01/08/2018 SUBJECTIVE: Today, the patient is alert and awake; having less cough. He has some shortness of breath on exertion. PHYSICAL EXAMINATION: VITAL SIGNS: Blood pressure is 158/80, pulse 64, respirations 20, and temperature 98. NECK: Supple. LUNGS: There are some rales bilaterally at his both lungs. HEART: Regular rate and rhythm. ABDOMEN: Soft and nontender. EXTREMITIES: There is no edema. The patient has a blood work that showed WBC of 13.1. The patient is on fluid. Hemoglobin of 13, hematocrit 41, and platelets 412. Chemistries showed sodium of 139, potassium 3.8, chloride 100, bicarb is 32, BUN 18, creatinine 0.9, glucose is 123, calcium 9.8, 2.5. We will decrease the Solu-Medrol to 20 IV every 12 hours . Eleazar Marsh MD
[2018-01-09] MEDS: Albuterol-Ipratrop 3 mg / 0.5 (3 ml) UD INH SCH ×3 (02:25→13:25)
[2018-01-09] MEDS: Azithromycin 500 MG in Sodium Chloride 0.9% 250 ML IVPB SCH (02:43)
[2018-01-09] MEDS: Piperacill/Tazo 3.375gm in Dex 3.375 GM/50 ML BAG IVPB SCH ×2 (05:05→13:58)
[2018-01-09] MEDS: metroNIDAZOLE IV 500 mg/100 ml 500 MG/100 ML BAG IVPB SCH ×2 (05:52→14:01)
[2018-01-09 07:48] LABS: BASO % 0.1 % (0.0-2.0); EOS % 0.4 % (0.0-4.0); LYMPH # 1.3 K/uL (1.0-4.3); LYMPH % 10.5 % (20.0-40.0); MEAN CELL VOLUME 92.4 fL (80.0-94.0); MEAN CORPUSCULAR HEMOGLOBIN 30.6 pg (27.0-31.0); MEAN CORPUSCULAR HGB CONC 33.1 g/dL (33.0-37.0); MEAN PLATELET VOLUME 8.6 fL (7.2-11.7); MONO # 0.6 K/uL (0.0-0.8); MONO % 5.4 % (0.0-10.0); NEUT # 10.1 K/uL (1.8-7.0); NEUT % 83.6 % (50.0-75.0); RBC 4.25 Mil/uL (4.40-5.90); RED CELL DISTRIBUTION WIDTH 14.2 % (11.5-14.5)
[2018-01-09 08:21] LABS: ALB/GLOB RATIO 0.9 (1.0-2.1); ALBUMIN 2.8 g/dL (3.5-5.0); ALT/SGPT 36 U/L (21-72); AST/SGOT 45 U/L (17-59); BLOOD UREA NITROGEN 19 mg/dL (9-20); CALCIUM 9.5 mg/dl (8.6-10.4); GFR NON-AFRICAN AMERICAN > 60
--- NOTE | 2018-01-09 09:40 | CP.PCM.PN ---
Subjective - Date & Time of Evaluation Date of Evaluation: 01/09/18 Time of Evaluation: 09:38 - Subjective Subjective: Less pain, No N/V/C/D Objective - Vital Signs/Intake and Output Vital Signs (last 24 hours): Temp Pulse Resp BP Pulse Ox 98.2 F 62 20 153/71 H 97 01/09/18 07:00 01/09/18 07:00 01/09/18 07:00 01/09/18 07:00 01/09/18 07:00 Intake and Output: 01/09/18 01/09/18 06:59 18:59 Intake Total 630 Output Total 450 Balance 180 - Medications Medications: Current Medications Albuterol/Ipratropium (Duoneb 3 Mg/0.5 Mg (3 Ml) Ud) 3 ml INH RQ6 [facility] Last Admin: 01/09/18 02:25 Dose: Not Given Aspirin (Aspirin Chewable) 81 mg PO DAILY [facility] Last Admin: 01/08/18 10:14 Dose: 81 mg Enalapril Maleate (Vasotec) 2.5 mg PO DAILY [facility] Metronidazole (Flagyl) 500 mg in 100 mls @ 100 mls/hr IVPB Q8H [facility]; Protocol Last Admin: 01/09/18 05:52 Dose: 100 mls/hr Piperacillin Sod/Tazobactam Sod (Zosyn 3.375 Gm Iv Premix) 3.375 gm in 50 mls @ 100 mls/hr IVPB Q8 [facility]; Protocol Last Admin: 01/09/18 05:05 Dose: 100 mls/hr Azithromycin 500 mg/ Sodium (Chloride) 250 mls @ 167 mls/hr IVPB Q24H [facility]; Protocol Last Admin: 01/09/18 02:43 Dose: 167 mls/hr Methylprednisolone (Solu-Medrol) 20 mg IVP Q12 [facility] Last Admin: 01/08/18 21:29 Dose: 20 mg Montelukast Sodium (Singulair) 10 mg PO HS [facility] Last Admin: 01/08/18 21:29 Dose: 10 mg Pantoprazole Sodium (Protonix Ec Tab) 40 mg PO DAILY [facility] Last Admin: 01/08/18 10:15 Dose: 40 mg Promethazine HCl/Codeine (Phenergan/Codeine Oral Syrup) 5 ml PO TID [facility] Last Admin: 01/08/18 17:38 Dose: 5 ml - Labs Labs: 01/09/18 07:32 01/09/18 07:32 PT 14.7 SECONDS (9.7-12.2) H 01/05/18 00:25 INR 1.3 01/05/18 00:25 APTT 29 SECONDS (21-34) 01/05/18 00:25 - Constitutional Appears: No Acute Distress - Head Exam Head Exam: ATRAUMATIC, NORMOCEPHALIC - Respiratory Exam Respiratory Exam: NORMAL BREATHING PATTERN - Cardiovascular Exam Cardiovascular Exam: REGULAR RHYTHM, +S1 - GI/Abdominal Exam GI & Abdominal Exam: Soft, Normal Bowel Sounds. absent: Distended, Guarding, Tenderness, Mass, Rebound Assessment and Plan (1) Abnormal CT of the abdomen Status: Acute (2) Diverticulitis Assessment & Plan: Continue IV abx until pain free then advance diet 10-14 day course of therapy. Colonoscopy as out patient in 2-3 months Status: Acute
[2018-01-09] MEDS: Promethazine/Cod 6.25mg-10mg/5ml Syr UD PO SCH ×2 (11:14→14:35)
[2018-01-09] MEDS: MethylPREDNISolone 40 mg Vial IVP SCH (11:14)
[2018-01-09] MEDS: Pantoprazole 40 mg EC Tab PO SCH (11:14)
--- NOTE | 2018-01-09 11:52 | CP.PCM.PN ---
Subjective - Date & Time of Evaluation Date of Evaluation: 01/09/18 Time of Evaluation: 11:50 - Subjective Subjective: PT ALERT, FEELS BETTER. LESS COUGH. LESS SOB. ROS; OTHERWISE NEG. Objective - Vital Signs/Intake and Output Vital Signs (last 24 hours): Temp Pulse Resp BP Pulse Ox 98.2 F 62 20 153/72 H 97 01/09/18 07:00 01/09/18 07:00 01/09/18 07:00 01/09/18 11:14 01/09/18 07:00 Intake and Output: 01/09/18 01/09/18 06:59 18:59 Intake Total 630 Output Total 450 Balance 180 - Medications Medications: Current Medications Albuterol/Ipratropium (Duoneb 3 Mg/0.5 Mg (3 Ml) Ud) 3 ml INH RQ6 [facility]MA Last Admin: 01/09/18 07:50 Dose: 3 ml Aspirin (Aspirin Chewable) 81 mg PO DAILY [facility]MA Last Admin: 01/09/18 11:14 Dose: 81 mg Enalapril Maleate (Vasotec) 2.5 mg PO DAILY [facility]MA Last Admin: 01/09/18 11:14 Dose: 2.5 mg Metronidazole (Flagyl) 500 mg in 100 mls @ 100 mls/hr IVPB Q8H [facility]; Protocol Last Admin: 01/09/18 05:52 Dose: 100 mls/hr Piperacillin Sod/Tazobactam Sod (Zosyn 3.375 Gm Iv Premix) 3.375 gm in 50 mls @ 100 mls/hr IVPB Q8 [facility]; Protocol Last Admin: 01/09/18 05:05 Dose: 100 mls/hr Azithromycin 500 mg/ Sodium (Chloride) 250 mls @ 167 mls/hr IVPB Q24H [facility]; Protocol Last Admin: 01/09/18 02:43 Dose: 167 mls/hr Methylprednisolone (Solu-Medrol) 20 mg IVP Q12 [facility] Last Admin: 01/09/18 11:14 Dose: 20 mg Montelukast Sodium (Singulair) 10 mg PO HS ALMA Last Admin: 01/08/18 21:29 Dose: 10 mg Pantoprazole Sodium (Protonix Ec Tab) 40 mg PO DAILY [facility]MA Last Admin: 01/09/18 11:14 Dose: 40 mg Promethazine HCl/Codeine (Phenergan/Codeine Oral Syrup) 5 ml PO TID [facility] Last Admin: 01/09/18 11:14 Dose: 5 ml - Labs Labs: 01/09/18 07:32 01/09/18 07:32 PT 14.7 SECONDS (9.7-12.2) H 01/05/18 00:25 INR 1.3 01/05/18 00:25 APTT 29 SECONDS (21-34) 01/05/18 00:25 - Constitutional Appears: No Acute Distress - Head Exam Head Exam: ATRAUMATIC, NORMOCEPHALIC - Eye Exam Eye Exam: EOMI, Normal appearance - ENT Exam ENT Exam: Mucous Membranes Moist - Neck Exam Neck Exam: Normal Inspection - Respiratory Exam Respiratory Exam: Decreased Breath Sounds Additional comments: FEW RHONCHI BETTER AIR MOVEMENT. - Cardiovascular Exam Cardiovascular Exam: RRR, +S1, +S2 - GI/Abdominal Exam GI & Abdominal Exam: Soft. absent: Tenderness - Rectal Exam Rectal Exam: Deferred - Extremities Exam Extremities Exam: absent: Calf Tenderness, Pedal Edema - Back Exam Back Exam: absent: CVA tenderness (L), CVA tenderness (R) - Neurological Exam Neurological Exam: Alert, Awake, CN II-XII Intact - Psychiatric Exam Psychiatric exam: Normal Mood - Skin Skin Exam: absent: Rash Assessment and Plan (1) COPD exacerbation Status: Acute (2) Pneumonia Status: Acute (3) Respiratory failure Status: Acute (4) Atrial fibrillation Status: Acute (5) Change in mental status Status: Acute (6) Diverticulitis Status: Acute - Assessment and Plan (Free Text) Assessment: RESP STATUS IMPROVING., LESS BRONCHOSPASM., CONT STEROID TAPER., CONT NEB BD., MONITOR O2 SAT. CXR REVIEWED. MRI RESULTS NOTED, NO ACUTE DISEASE. INCREASE OOB. FOR PT. DISCUSSED WITH STAFF AT LENGTH.
--- NOTE | 2018-01-09 12:39 | CP.PCM.PN ---
Subjective - Date & Time of Evaluation Date of Evaluation: 01/09/18 Time of Evaluation: 07:00 - Subjective Subjective: less cough less sob no fever Objective - Vital Signs/Intake and Output Vital Signs (last 24 hours): Temp Pulse Resp BP Pulse Ox 98.2 F 62 20 153/72 H 97 01/09/18 07:00 01/09/18 07:00 01/09/18 07:00 01/09/18 11:14 01/09/18 07:00 Intake and Output: 01/09/18 01/09/18 06:59 18:59 Intake Total 630 Output Total 450 Balance 180 - Medications Medications: Current Medications Albuterol/Ipratropium (Duoneb 3 Mg/0.5 Mg (3 Ml) Ud) 3 ml INH RQ6 ALMA Last Admin: 01/09/18 07:50 Dose: 3 ml Aspirin (Aspirin Chewable) 81 mg PO DAILY [facility]MA Last Admin: 01/09/18 11:14 Dose: 81 mg Enalapril Maleate (Vasotec) 2.5 mg PO DAILY [facility] Last Admin: 01/09/18 11:14 Dose: 2.5 mg Metronidazole (Flagyl) 500 mg in 100 mls @ 100 mls/hr IVPB Q8H [facility]; Protocol Last Admin: 01/09/18 05:52 Dose: 100 mls/hr Piperacillin Sod/Tazobactam Sod (Zosyn 3.375 Gm Iv Premix) 3.375 gm in 50 mls @ 100 mls/hr IVPB Q8 [facility]; Protocol Last Admin: 01/09/18 05:05 Dose: 100 mls/hr Azithromycin 500 mg/ Sodium (Chloride) 250 mls @ 167 mls/hr IVPB Q24H [facility]; Protocol Last Admin: 01/09/18 02:43 Dose: 167 mls/hr Methylprednisolone (Solu-Medrol) 20 mg IVP Q12 [facility] Last Admin: 01/09/18 11:14 Dose: 20 mg Montelukast Sodium (Singulair) 10 mg PO HS ALMA Last Admin: 01/08/18 21:29 Dose: 10 mg Pantoprazole Sodium (Protonix Ec Tab) 40 mg PO DAILY [facility] Last Admin: 01/09/18 11:14 Dose: 40 mg Promethazine HCl/Codeine (Phenergan/Codeine Oral Syrup) 5 ml PO TID [facility] Last Admin: 01/09/18 11:14 Dose: 5 ml - Labs Labs: 01/09/18 07:32 01/09/18 07:32 PT 14.7 SECONDS (9.7-12.2) H 01/05/18 00:25 INR 1.3 01/05/18 00:25 APTT 29 SECONDS (21-34) 01/05/18 00:25 - Constitutional Appears: Non-toxic, Chronically Ill - Head Exam Head Exam: NORMOCEPHALIC - Eye Exam Eye Exam: absent: Scleral icterus - ENT Exam ENT Exam: Mucous Membranes Dry - Neck Exam Neck Exam: absent: Lymphadenopathy - Respiratory Exam Respiratory Exam: Decreased Breath Sounds, Rales - GI/Abdominal Exam GI & Abdominal Exam: Distended, Soft - Rectal Exam Rectal Exam: Deferred - Exam Exam: NORMAL INSPECTION Assessment and Plan (1) Atrial fibrillation Status: Acute (2) COPD exacerbation Status: Acute (3) Diverticulitis Status: Acute (4) Interstitial lung disease Status: Acute (5) Pneumonia Status: Acute (6) Nephrolithiasis Status: Acute - Assessment and Plan (Free Text) Assessment: cont iv rx as ordered
[2018-01-09 16:13] VITALS: BP 129/86; PULSE 96; TEMP 97.4; O2SAT 95
--- NOTE | 2018-01-09 17:22 | CP.PCM.PN ---
Subjective - Date & Time of Evaluation Date of Evaluation: 01/09/18 Time of Evaluation: 15:20 - Subjective Subjective: Patient seen today , states sob and cough improved spo2 room air 97% oob ambulates the hallway without oxygen and spo2 92-93% and no sob noted , states wants to go home vss and labs reviewed - a febrile Objective - Vital Signs/Intake and Output Vital Signs (last 24 hours): Temp Pulse Resp BP Pulse Ox 97.4 F L 96 H 20 129/86 95 01/09/18 15:00 01/09/18 15:00 01/09/18 15:00 01/09/18 15:00 01/09/18 15:00 Intake and Output: 01/09/18 01/09/18 06:59 18:59 Intake Total 630 Output Total 450 Balance 180 - Medications Medications: Current Medications Albuterol/Ipratropium (Duoneb 3 Mg/0.5 Mg (3 Ml) Ud) 3 ml INH RQ6 [facility]MA Last Admin: 01/09/18 13:25 Dose: 3 ml Aspirin (Aspirin Chewable) 81 mg PO DAILY [facility] Last Admin: 01/09/18 11:14 Dose: 81 mg Enalapril Maleate (Vasotec) 2.5 mg PO DAILY [facility] Last Admin: 01/09/18 11:14 Dose: 2.5 mg Metronidazole (Flagyl) 500 mg in 100 mls @ 100 mls/hr IVPB Q8H [facility]; Protocol Last Admin: 01/09/18 14:01 Dose: 100 mls/hr Piperacillin Sod/Tazobactam Sod (Zosyn 3.375 Gm Iv Premix) 3.375 gm in 50 mls @ 100 mls/hr IVPB Q8 [facility]; Protocol Last Admin: 01/09/18 13:58 Dose: 100 mls/hr Azithromycin 500 mg/ Sodium (Chloride) 250 mls @ 167 mls/hr IVPB Q24H [facility]MA; Protocol Last Admin: 01/09/18 02:43 Dose: 167 mls/hr Methylprednisolone (Solu-Medrol) 20 mg IVP Q12 [facility]MA Last Admin: 01/09/18 11:14 Dose: 20 mg Montelukast Sodium (Singulair) 10 mg PO HS ALMA Last Admin: 01/08/18 21:29 Dose: 10 mg Pantoprazole Sodium (Protonix Ec Tab) 40 mg PO DAILY [facility] Last Admin: 01/09/18 11:14 Dose: 40 mg Promethazine HCl/Codeine (Phenergan/Codeine Oral Syrup) 5 ml PO TID [facility] Last Admin: 01/09/18 14:35 Dose: 5 ml - Labs Labs: 01/09/18 07:32 01/09/18 07:32 PT 14.7 SECONDS (9.7-12.2) H 01/05/18 00:25 INR 1.3 01/05/18 00:25 APTT 29 SECONDS (21-34) 01/05/18 00:25 Assessment and Plan - Assessment and Plan (Free Text) Assessment: A/P 77 yr old male admitted with interstitial lung disease, LBBB seen by Dr. Marsh today , cleared fro discharge home today and f/u with Dr. Marsh office in 1 week continue taper dose of prednoisone and Dr. foley office in 2 weeks discharge plan discussed with patient , who understands and agrees with plan patient instructed to returns to ED if symptoms returns or worsening symptoms
--- NOTE | 2018-01-09 19:48 | PN ---
DATE: 01/09/2018 SUBJECTIVE: The patient is experiencing productive cough. No hemoptysis. PHYSICAL EXAMINATION VITAL SIGNS: Blood pressure 153/72, heart rate 62, temperature 98.2, and respirations 20. HEENT: Normocephalic. CHEST: Bilateral coarse crepitation. HEART: S1 and S2 regular. ABDOMEN: Soft. EXTREMITIES: No edema. LABORATORY DATA: Today's SMA-7 is within normal limits except for carbon dioxide of 36 and anion gap of 9, and glucose of 117. Hemoglobin and hematocrit are 13 and 39.3, white count 12, and platelet count 395,000. ASSESSMENT: 1. Interstitial lung disease. 2. Mildly depressed left ventricular systolic function. 3. Chronic obstructive lung disease. 4. . RECOMMENDATIONS: Continue aspirin 81 mg once a day, IV Zithromax and IV Flagyl, continue Solu-Medrol 20 mg intravenously every 12 hours , Vasotec 2.5 mg daily, and Zosyn 3.375 g intravenously every 8 hours. Irving Lord MD
--- NOTE | 2018-01-10 01:23 | PN ---
DATE: 01/09/2018 SUBJECTIVE: Today, the patient is alert and awake with no shortness of breath and less cough. No dizziness. No chest pain. No palpitation. PHYSICAL EXAMINATION: VITAL SIGNS: Blood pressure 129/86, pulse 96, respirations 20, temperature 97.4. NECK: Supple. No JVD. LUNGS: There are some rales bilaterally. HEART: Regular rate and rhythm. ABDOMEN: Soft. Nontender. No palpable mass. EXTREMITIES: There is no edema. Blood test showed WBC 12, hemoglobin 13, hematocrit 39.3, and platelet is 395. Chemistry showed sodium 140, potassium 4.7, chloride 100, BUN 19, creatinine 1, and glucose of 117, and so the patient has improved the patient on prednisone providing the patient has shortness of breath and O2 saturation remained above 95 after working. Case was discussed and reviewed with SAVANNAH Bella, nurse practitioner. Eleazar Marsh MD
--- NOTE | 2018-01-10 05:23 | DS ---
This patient is a 77-year-old male who was admitted because the patient was found to be confused with unsteady gait. The patient also was complaining of shortness of breath and also persistent cough. The patient had a consult with Dr. Meyrs, Pulmonary and also with Dr. Bhat, GI; Dr. Lyn, ID; and Dr. Lord, Cardiology. The patient was complaining of chest pain and also the patient had abdominal pain, so the patient was put on antibiotic and also Solu-Medrol. The patient progressively started improving, and the cough was so strong that she started to have the Phenergan with codeine, but progressively the patient got better and will be able to be discharged home after finding that the patient was able to work without any short of breath. The case was reviewed and discussed with Alma Noriega, the nurse practitioner, and the patient discharged home. We will continue to follow him in the office within one week. Eleazar Marsh MD
--- NOTE | 2018-01-10 18:16 | CARD ---
APPROVED REPORT Date of service: 01/08/2018 EXAM: Two-dimensional and M-mode echocardiogram with Doppler and color Doppler. Other Information Quality : GoodRhythm : INDICATION Abnormal EKG/Arrhythmia Atrial Fibrillation COPD 2D DIMENSIONS IVSd1.0 (0.7-1.1cm)LVDd4.4 (3.9-5.9cm) PWd1.0 (0.7-1.1cm)LA Qogibj42 (18-58mL) LVDs3.6 (2.5-4.0cm)FS (%) 19.2 % LVEF (%)45.0 (>50%)LVEF (Abrams's)45.43 % M-Mode DIMENSIONS Left Atrium (MM)3.44 (2.5-4.0cm)IVSd1.20 (0.7-1.1cm) Aortic Root3.69 (2.2-3.7cm)LVDd5.73 (4.0-5.6cm) Aortic Cusp Exc.1.45 (1.5-2.0cm)PWd1.02 (0.7-1.1cm) FS (%) 27 %LVDs4.18 (2.0-3.8cm) LVEF (%)52 (>50%) Aortic Valve AI P 1/2 [id number] Mitral Valve MV E Brbgncej57.0cm/sMV A Hicbuffc775.4cm/sE/A ratio0.8 TDI Lateral E' Peak V8.48cm/sMedial E' Peak V5.99cm/sE/Lateral E'9.7 E/Medial E'13.7 Tricuspid Valve TR Peak Eqcgwqef959co/sTR Peak Gr.[id number] LEFT VENTRICLE The left ventricle is normal size. There is normal left ventricular wall thickness. There is normal left ventricular wall thickness. The systolic function is mildly impaired. Transmitral Doppler flow pattern is abnormal. RIGHT VENTRICLE The right ventricle is normal size. ATRIA The left atrium size is normal. The right atrium size is normal. AORTIC VALVE There is trace to mild aortic regurgitation. MITRAL VALVE Mitral regurgitation is trace to mild. TRICUSPID VALVE There is mild tricuspid regurgitation. GREAT VESSELS The aortic root is mildly enlarged. <Conclusion> Mild LV systolic dysfunction. Diastolic dysfunction. Normal chamber size. Trace to mild AR. Trace to mild MR. Mild TR. Mildly dilated aortic root.
== END 2018-01-09 17:24 | disposition home or self-care (01) | DRG 196 ==
LOC: C.ER 23:58 → C.9E 01-05 03:41 → C.6T 01-05 10:13
PROVIDERS: ADMIT Specialist; ATTEND Specialist
DX: J84.112 Idiopathic pulmonary fibrosis (principal); J96.90 Respiratory failure, unspecified, unspecified whether with hypoxia or hypercapnia; J44.0 Chronic obstructive pulmonary disease with (acute) lower respiratory infection; J44.1 Chronic obstructive pulmonary disease with (acute) exacerbation; K57.32 Diverticulitis of large intestine without perforation or abscess without bleeding; I48.91 Unspecified atrial fibrillation; J84.89 Other specified interstitial pulmonary diseases; N20.0 Calculus of kidney; R29.6 Repeated falls; Z87.891 Personal history of nicotine dependence; K66.0 Peritoneal adhesions (postprocedural) (postinfection); I44.7 Left bundle-branch block, unspecified; E78.00 Pure hypercholesterolemia, unspecified

== ENCOUNTER 2018-01-15 15:23 | Emergency (ER) | payer MEDICARE ==
[2018-01-15 15:23] VITALS: BMI 25.1
--- NOTE | 2018-01-15 16:20 | C.PDOC ---
History Of Present Illness 77 year old male with a history of asthma presents to the ED for evaluation of a laceration to the forehead s/p trip and fall injury outside prior to arrival and hit head on concrete planter. Patient takes daily Aspirin. Denies nausea, vomiting, vision changes, LOC, back pain, numbness, tingling. denies cp, sob, dizziness prior to fall. c/o abrasion to right knee. last tdap 5 yrs ago. Time Seen by Provider: 01/15/18 15:53 Chief Complaint (Nursing): Abnormal Skin Integrity History Per: Patient History/Exam Limitations: no limitations Onset/Duration Of Symptoms: Other (prior to arrival.) Current Symptoms Are (Timing): Still Present Location Of Injury: Anterior: Head (forehead) Quality Of Symptoms: Painful Severity: Mild Recent travel outside of the [place]: No Additional History Per: Patient Past Medical History Reviewed: Historical Data, Nursing Documentation, Vital Signs Vital Signs: Last Vital Signs Temp 98.7 F 01/15/18 15:28 Pulse 99 H 01/15/18 15:28 Resp 18 01/15/18 15:28 BP 162/92 H 01/15/18 15:28 Pulse Ox 100 01/15/18 15:28 - Medical History PMH: Atrial Fibrillation, COPD, Emphysema, Hypercholesterolemia Denies: Chronic Kidney Disease Surgical History: No Surg Hx Family History: States: Unknown Family Hx - Social History Hx Alcohol Use: No Hx Substance Use: No Review Of Systems Constitutional: Negative for: Fever, Weakness Eyes: Negative for: Vision Change Cardiovascular: Negative for: Chest Pain Gastrointestinal: Negative for: Nausea, Vomiting Musculoskeletal: Negative for: Neck Pain, Back Pain Skin: Positive for: Other (laceration forehead) Neurological: Positive for: Headache. Negative for: Weakness, Numbness, Incoordination, Other (LOC.) Physical Exam - Physical Exam Appears: Non-toxic, No Acute Distress Skin: Warm, Dry, Other (5 cm curved deep laceration flap like to middle forehead,. no active bleeding) Head: No Atraumatic, Normacephalic, Laceration (see skin) Eye(s): bilateral: Normal Inspection, PERRL, EOMI Ear(s): Bilateral: Normal (no hempotympanum) Oral Mucosa: Moist Neck: No Midline Cervical Tenderness, No Paracervical Tenderness Respiratory: No Decreased Breath Sounds, No Wheezing Gastrointestinal/Abdominal: Bowel Sounds, Soft, No Tenderness Extremity: Normal ROM, No Pedal Edema, No Calf Tenderness, No Deformity, Other (abrasion right knee) Neurological/Psych: Oriented x3, Normal Speech, Normal Cognition, Normal Cranial Nerves, Normal Motor, Normal Sensation Gait: Steady ED Course And Treatment O2 Sat by Pulse Oximetry: 100 (ON RA) Pulse Ox Interpretation: Normal - CT Scan/US head Other Rad Studies (CT/US): Read By Radiologist, Radiology Report Reviewed cervical spine Other Rad Studies (CT/US): Read By Radiologist, Radiology Report Reviewed CT/US Interpretation: No acute fractures. Minor multilevel degenerative spondylosis. Laceration - Laceration Repair forehead Wound Length (In cm): 5 Description Of Wound: Irregular (curved flap ) Wound Cleansed With: Betadine, Sterile Saline Anesthesia: Lidocaine 1% Wound Examination: Irrigated With Saline Wound Closure: Suture (5-0 ethilon) Suture Technique And Material Used: Interrupted (#15) Wound Complexity: Simple Medical Decision Making Medical Decision Makin77 y/o male s/p trip and fall, on asa; head and cervical Spine ct, then wound repair. tdap [address] neg for acute injury, wound repaired. d/c home with and son with closed head injury instructions and pmd f/u 1-2 days./ Disposition Counseled Patient/Family Regarding: Studies Performed, Diagnosis, Need For Followup, Rx Given - Disposition Referrals: Eleazar Marsh MD [Staff Provider] - Disposition: HOME/ ROUTINE Disposition Time: 19:43 Condition: GOOD Additional Instructions: Mantenga la herida limpia y seca. Cambie el apsito a diario. Jose suavemente con agua y jabn y secar con palmaditas; Aplicar bacitracina. Aria un seguimiento con el Dr. Marsh en 1-2 odom. Haz que alguien te despierte esta noche varias veces y asegrate de que te levantes fcilmente. Regrese a la fanny de emergencias para cualquier dolor de maty olimpia, convulsiones. Vmitos o cualquier comportamiento inusual. Tylenol para el dolor. Compresa fra sobre el aderezo varias veces al da para ayudar a reducir la hinchazn. Retirada de la sutura en 7 odom. Keep wound clean and dry. Change dressing daily. wash gently with soap and water and pat dry; apply bacitracin. Follow up with Dr Marsh in 1-2 days. Have someone wake you tonight several times and make sure you rise easily. Return to ER for any severe headache, seizure. vomiting or any unusual behavior. Tylenol for pain. Cold compress over dressing several times a day to help- reduce swelling. Suture removal in 7 days. Prescriptions: Acetaminophen [Tylenol 325mg tab] 650 mg PO Q6 #30 tab Bacitracin OINT 1 applic TOP BID #1 tube Instructions: Closed Head Injury (DC), Laceration Repair With Stitches (DC) Forms: Gen Discharge Inst Tajik, [employer] (Tajik) Print Language: K[place] - Clinical Impression Clinical Impression: Fall from slip, trip, or stumble, Closed head injury, Laceration of forehead - PA / HOSPITAL TELEVISION RENTAL CLERK / Resident Statement MD/DO has reviewed & agrees with the documentation as recorded. - Scribe Statement The provider has reviewed the documentation as recorded by the Scribe (Domenica Lopez) All medical record entries made by the Scribe were at my direction and personally dictated by me. I have reviewed the chart and agree that the record accurately reflects my personal performance of the history, physical exam, medical decision making, and the department course for this patient. I have also personally directed, reviewed, and agree with the discharge instructions and disposition.
[2018-01-15] MEDS ORDERED: Bacitracin 500 Units/gm Oint Foilpak UD TOP ONE (16:45)
[2018-01-15] MEDS ORDERED: Lidocaine 1% Inj (20ml) INFIL ONE (16:45)
[2018-01-15] MEDS ORDERED: Lidocaine Hydrochloride 5 ML INJ ONE (16:54)
[2018-01-15] MEDS ORDERED: Bacitracin 500 Units/gm Oint Foilpak UD ONE (16:54)
--- NOTE | 2018-01-15 17:43 | CT ---
Date of service: 01/15/2018 PROCEDURE: CT HEAD WITHOUT CONTRAST. HISTORY: Status post fall with forehead lac, on asa, no loc COMPARISON: Comparison made with prior CT scan of the brain dated 01/07/2018.. Comparison also made with prior MRI of the brain 01/08/2018.. TECHNIQUE: Axial computed tomography images were obtained through the head/brain without intravenous contrast. Radiation dose: Total exam DLP = 1046.42 mGy-cm. This CT exam was performed using one or more of the following dose reduction techniques: Automated exposure control, adjustment of the mA and/or kV according to patient size, and/or use of iterative reconstruction technique. FINDINGS: HEMORRHAGE: No acute parenchymal, subarachnoid or extra-axial hemorrhage. BRAIN: Mild to moderate diffuse and confluent chronic periventricular white matter ischemic changes seen extending peripherally into the deep and subcortical regions of both cerebral hemispheres.. Again noted are what probably represent small bilateral inferior basal ganglia dilated perivascular spaces however concomitant chronic lacunar type infarct not completely excluded.. VENTRICLES: No obstructive hydrocephalus.. Note again made of an incidental cavum velum interpositum CALVARIUM: There are no acute calvarial fractures. There is a small mid frontal (mid forehead) contusion with associated laceration evidenced by small amount of subjacent subcutaneous air PARANASAL SINUSES: Unremarkable as visualized. No significant inflammatory changes. MASTOID AIR CELLS: The right mastoid air complex remains sclerotic and underpneumatized. The residual mastoid air cells exhibit opacification. There is also partial opacification of the mastoid antrum. OTHER FINDINGS: None. IMPRESSION: No acute intracranial hemorrhage. Mild moderate chronic periventricular white matter ischemic changes with moderate volume loss. There is a small mid frontal (mid forehead) contusion with associated laceration evidenced by small amount of subjacent subcutaneous air
--- NOTE | 2018-01-15 17:50 | CT ---
Date of service: 01/15/2018 PROCEDURE: CT Cervical Spine without contrast HISTORY: Status post fall with head trauma COMPARISON: None available. TECHNIQUE: Axial computed tomography images were obtained of the cervical spine without the use of intravenous contrast. Coronal and sagittal reformatted images were created and reviewed. Radiation dose: Total exam DLP = 476.36 mGy-cm. This CT exam was performed using one or more of the following dose reduction techniques: Automated exposure control, adjustment of the mA and/or kV according to patient size, and/or use of iterative reconstruction technique. FINDINGS: VERTEBRAE: Compression fractures no retropulsed fragments. No acute displaced or compression fractures no retropulsed fragments. Vertebral bodies exhibit relatively normal stature aside from minor fish-mouth endplate deformities at several levels. There is very slight anterior subluxation of C4 over C5 however vertebral bodies otherwise exhibit normal alignment. Made. Slight anterior subluxation of C7 over T1. Facets normally aligned DISCS/SPINAL CANAL/NEURAL FORAMINA: Mild multilevel degenerative spondylosis. At the C2-C3 level, there is minor posterior disc space narrowing. No disc herniation however there is a minimal central disc bulge ridge complex noted.. The uncovertebral joints exhibit minimal degenerative squaring left greater than right. Facets also mildly hypertrophic left greater than right. Exit foramina adequate. At the C3-C4 level, there is minor broad-based bulge ridge complex. The changes are contiguous with hypertrophic uncovertebral joints. The facets also moderately hypertrophic with resultant bilateral foraminal narrowing more so on the right side. The overall central bony canal adequate despite disc ridge complex. At the C4-C5 level, there is relatively adequate disc height. No disc herniation or significant disc bulge. Minimal degenerative squaring of the uncovertebral joints. Facet joints are moderately hypertrophic left greater than right. The overall central bony canal is adequate. Exit foramina are stenotic bilaterally left greater than right. At the C5-C6 level, there is adequate disc height. No disc herniation or significant disc bulge. Minimal degenerative squaring of the uncovertebral joints with moderate facet arthropathy. Central canal appears adequate. Exit foramina are narrowed on the left and marginal to slightly narrowed on the right side. PARASPINAL SOFT TISSUES: Prevertebral and paraspinal soft tissues grossly unremarkable. OTHER FINDINGS: Minor right apical pleural thickening and parenchymal scarring changes. Tiny bleb left lung apex with what appears represent some minimal parenchymal scarring left apex IMPRESSION: No acute fractures. Minor multilevel degenerative spondylosis.
[2018-01-16 00:36] VITALS: BP 147/89; PULSE 74; RESP 16; TEMP 98.7; O2SAT 100
== END 2018-01-15 20:00 | disposition home or self-care (01) ==
LOC: C.ER 15:23
DX: S01.81XA Laceration without foreign body of other part of head, initial encounter (principal); W01.198A Fall on same level from slipping, tripping and stumbling with subsequent striking against other object, initial encounter

== ENCOUNTER 2018-01-22 10:13 | Emergency (ER) | payer MEDICARE ==
[2018-01-22 10:14] VITALS: BMI 25.1
[2018-01-22 10:27] VITALS: BP 136/82; PULSE 86; RESP 20; TEMP 98.1; O2SAT 94
--- NOTE | 2018-01-22 11:00 | C.PDOC ---
History Of Present Illness 77 year old male presents to the ED for suture removal status post fall one week ago. Reports 15 stitches were placed here in the ED. Denies any pain to site, headache, fever, chills, drainage, or swelling. Time Seen by Provider: 01/22/18 10:41 Chief Complaint (Nursing): Wound Check History Per: Patient History/Exam Limitations: no limitations Onset/Duration Of Symptoms: Days Ago (one week ago) Current Symptoms Are (Timing): Gone Location Of Injury: Anterior: Face (well healing semicircular laceration to forehead) Quality Of Symptoms: denies: Painful, Swollen, Draining Past Medical History Reviewed: Historical Data, Nursing Documentation, Vital Signs Vital Signs: Last Vital Signs Temp 98.1 F 01/22/18 10:24 Pulse 86 01/22/18 10:24 Resp 20 01/22/18 10:24 BP 136/82 01/22/18 10:24 Pulse Ox 94 L 01/22/18 10:24 - Medical History PMH: Atrial Fibrillation, COPD, Emphysema, Hypercholesterolemia Denies: Chronic Kidney Disease Surgical History: No Surg Hx Family History: States: No Known Family Hx - Social History Hx Alcohol Use: No Hx Substance Use: No - Immunization History Hx Tetanus Toxoid Vaccination: Yes Hx Influenza Vaccination: Yes Hx Pneumococcal Vaccination: Yes Review Of Systems Except As Marked, All Systems Reviewed And Found Negative. Constitutional: Negative for: Fever, Chills Skin: Positive for: Other (well healing semicircular laceration to forehead ) Neurological: Negative for: Headache Physical Exam - Physical Exam Appears: Non-toxic, No Acute Distress Skin: Warm, Dry Head: Normacephalic, No Swelling, Laceration (well-healing semicircular laceration with simple interrupted sutures, no drainage, no swelling) Eye(s): bilateral: Normal Inspection, PERRL, EOMI Nose: Normal Oral Mucosa: Moist Throat: Normal Neck: Normal ROM, Supple Chest: Symmetrical Neurological/Psych: Oriented x3, Normal Speech Gait: Steady ED Course And Treatment O2 Sat by Pulse Oximetry: 94 (RA) Pulse Ox Interpretation: Normal Medical Decision Making Medical Decision Making: Sutures removed without difficulty. Patient tolerated procedure well. Disposition Counseled Patient/Family Regarding: Diagnosis - Disposition Disposition: HOME/ ROUTINE Disposition Time: 10:58 Condition: STABLE Instructions: Stitches Removal Forms: Gen Discharge Inst Ethiopian, General Discharge Instructions - POA Present On Arrival: None - Clinical Impression Clinical Impression: Laceration of forehead, Visit for suture removal - Scribe Statement The provider has reviewed the documentation as recorded by the Scribe Puja Bruno All medical record entries made by the Scribe were at my direction and personally dictated by me. I have reviewed the chart and agree that the record accurately reflects my personal performance of the history, physical exam, me dical decision making, and the department course for this patient. I have also personally directed, reviewed, and agree with the discharge instructions and disposition.
== END 2018-01-22 11:07 | disposition home or self-care (01) ==
LOC: C.ER 10:13
DX: S01.81XD Laceration without foreign body of other part of head, subsequent encounter (principal); E78.00 Pure hypercholesterolemia, unspecified; I48.91 Unspecified atrial fibrillation

== ENCOUNTER 2018-05-04 11:59 | Outpatient (CLI) | payer MEDICARE | END 2018-05-04 12:00 | disposition home or self-care (01) | LOC: C.EKG 11:59 ==